=== PATIENT | male | born 1955 | race Caucasian/White ===

== ENCOUNTER → 2018-06-08 09:08 | Outpatient (CLI) | payer OTHER, SELFPAY | PROVIDERS: Family Provider Family Medicine; PCP Family Medicine; Referring Provider Nurse Practitioner Adult Health; Visit Provider Nurse Practitioner Adult Health | DX: R97.20 Elevated prostate specific antigen [PSA] (principal) | CPT/HCPCS: 36415; 84153 ==

== ENCOUNTER → 2018-06-18 08:00 | Outpatient (CLI) | payer OTHER, SELFPAY ==
--- NOTE | 2018-06-18 | IMM_PTH ---
PATIENT: RADHA DE LA ROSA LOC: [facility] U#:[id number] AGE/SX: 70/M ROOM: RE06/18/[address]: Dr. Krzysztof Fontanez MD : 1955 BED: DIS: SPEC #: [id number] RECD: 06/22/18 10:29 STATUS: JOEY REToya #: [id number] BOAZ: 06/18/18 00:[address]: Krzysztof Fontanez DEPT: IMMUNOHISTOCHEMISTRY RECD BY: Amy Jordan ENTERED: 06/22/18 10:30 SP TYPE: IMMUNO OTHR DR: Dr. Ermias Castillo MD Tissues: A - PROSTATE RIGHT B - PROSTATE RIGHT C - PROSTATE RIGHT Procedures: 34BE12 (add) P40 (add) 34BE12 (initial) PHYSICIAN & INSTITUTION [place] [id number] SPECIMEN INFORMATION: Tissue Source: A - Right prostate, apex, B - Right prostate, mid, C - Right prostate, base Clinical Info: Elevated PSA Specimen Number: [id number] A-C CPT code: 54352, 08401 x5 METHODOLOGY: Deparaffinized sections of prefer/formalin-fixed tissue or PAP/DQ stained slides are incubated with monoclonal/polyclonal antibodies/oligonucleotide probes. Localization is made via biotin free immunoperoxidase method. Appropriate controls are performed and reacted as expected. Results on target cell population are indicated in the following table: RESULTS: ANTIBODY / CLONE RESULT Block A 34BE12 (34BE12) negative P40 (BC28) negative Block B 34BE12 (34BE12) negative P40 (BC28) negative Block C 34BE12 (34BE12) negative P40 (BC28) negative These tests were developed and their performance characteristics determined by [facility]. They may not have been cleared or approved by the U.S. Food and Drug Administration. The FDA has determined that such clearance or approval is not necessary. INTERPRETATION: A. Right prostate, apex, core biopsy: Focal atypical small acinar proliferation. B. Right prostate, mid, core biopsy: Adenocarcinoma. C. Right prostate, base, core biopsy: Adenocarcinoma. SJ:radha 06/23/18 Case has been reviewed in consultation with Dr. Bauer who concurs with the above diagnosis. IDC:[email or web address]
--- NOTE | 2018-06-18 08:00 | PROSBIL_PTH ---
PATIENT: RADHA DE LA ROSA LOC: [facility] U#:[id number] AGE/SX: 70/M ROOM: RE06/18/[address]: Dr. Krzysztof Fontanez MD : 1955 BED: DIS: SPEC #: [id number] RECD: 06/18/18 16:51 STATUS: JOEY KAITLIN #: [id number] BOAZ: 06/18/18 08:[address]: Krzysztof Fontanez DEPT: SURGICAL PATHOLOGY RECD BY: Brooks Curtis ENTERED: 06/19/18 13:02 SP TYPE: PROST BX SUSIE DR: Dr. Ermias Castillo MD Tissues: A - PROSTATE RIGHT B - PROSTATE RIGHT C - PROSTATE RIGHT D - PROSTATE LEFT E - PROSTATE LEFT F - PROSTATE LEFT Procedures: PROSTATE BX HEADER OPERATION: Prostate biopsy PRE-OP DIAGNOSIS: Elevated PSA TISSUE SUBMITTED: A - Right apex, B - Right mid, C - Right base, D - Left apex, E - Left mid, F - Left base MICROSCOPIC DIAGNOSIS A. Right prostate, apex, core biopsy: Focal atypical small acinar proliferation (ALEXI). See comment. B. Right prostate, mid, core biopsy: Prostatic adenocarcinoma: Bouton grade: 3+4=7 Number of cores involved: 2 out of 2 Proportion of tissue involved: ~10% Perineural invasion: Not identified. Greatest tumor length: 0.1 cm Chronic inflammation. Focal high-grade prostatic intraepithelial neoplasia (HGPIN). See comment. C. Right prostate, base, core biopsy: Prostatic adenocarcinoma: Bouton grade: 4+4=8 Number of cores involved: 1 out of 2 Proportion of tissue involved: ~5% Perineural invasion: Not identified. Greatest tumor length: 0.1 cm See comment. D. Left prostate, apex, core biopsy: Focal high-grade prostatic intraepithelial neoplasia (HGPIN). E. Left prostate, mid, core biopsy: Prostatic tissue, negative for malignancy. F. Left prostate, base, core biopsy: Prostatic tissue, negative for malignancy. Focal chronic granulomatous inflammation. SJ:radha 06/22/18 COMMENT A-C. Immunohistochemistry ([id number]) supports the above diagnosis. Case has been reviewed in consultation with Dr. Bauer who concurs with the above diagnosis. IDC:AM MICROSCOPIC DESCRIPTION Slides are reviewed. GROSS DESCRIPTION A - Received is one container designated prostate, right apex. The specimen consists of four elongated fragments of light boo-white soft tissue each measuring 0.5 cm in length and 0.1 cm in diameter. The specimen is totally submitted in one cassette. B - Received is one container designated prostate, right mid. The specimen consists of two elongated fragments of light boo-white soft tissue measuring 0.8 and 0.9 cm in length and 0.1 cm in diameter. The specimen is totally submitted in one cassette. C - Received is one container designated prostate, right base. The specimen consists of two elongated fragments of light boo-white soft tissue measuring 1.3 and 1.5 cm in length and 0.1 cm in diameter. The specimen is totally submitted in one cassette. D - Received is one container designated prostate, left apex. The specimen consists of two elongated fragments of light boo-white soft tissue measuring 1 and 1.2 cm in length and 0.1 cm in diameter. The specimen is totally submitted in one cassette. E - Received is one container designated prostate, left mid. The specimen consists of four elongated fragments of light boo-white soft tissue measuring 0.3 to 1 cm in length and 0.1 cm in diameter. The specimen is totally submitted in one cassette. F - Received is one container designated prostate, left base. The specimen consists of two elongated fragments of light boo-white soft tissue measuring 0.3 and 0.5 cm in length and 0.1 cm in diameter. The specimen is totally submitted in one cassette. / SJ:rg 06/19/18 TC:0 [facility]: [id number] x6
== END ==
PROVIDERS: Family Provider Family Medicine; PCP Family Medicine; Referring Provider Urology; Visit Provider Urology
DX: C61 Malignant neoplasm of prostate (principal); N42.32 Atypical small acinar proliferation of prostate
CPT/HCPCS: 88305; 88341; 88342; G0416

== ENCOUNTER → 2018-06-26 07:14 | Outpatient (CLI) | payer OTHER, SELFPAY ==
--- NOTE | 2018-06-26 07:17 | NM_ITS ---
CLINICAL: 63-year-old female with reported history of carcinoma of the prostate. WHOLE BODY 99m Tc MDP RADIONUCLIDE BONE SCINTIGRAPHY COMPARISON: None available FINDINGS: Following the intravenous administration of 25.0 mCi of 99m Tc MDP, whole body bone images reveal: 1. Increased radiopharmaceutical concentration is identified in the mid cervical spine posteriorly on the right, fifth lumbar vertebra posteriorly on the left and right, the left hip, sternoclavicular, acromioclavicular and glenohumeral orbits of both shoulders, knees bilaterally, right-left ankles, the visualized wrist articulations bilaterally. 2. The remaining skeletal structures are scintigraphically unremarkable with normal-appearing renal images and urinary bladder activity identified. NM/Bone Scan Whole Body IMPRESSION: 1. The increase in radiopharmaceutical concentration identified in the cervical and lumbar spine, bilateral shoulder, wrist, hip and knee articulations, right-left ankles is commensurate with degenerative arthritis. 2. There is no definitive typical scintigraphic evidence of diffuse axial skeletal metastatic disease on the current examination. Electronically Signed: Brooks Seay DO at 8:20 EST Tel , Service support ,
== END ==
PROVIDERS: Family Provider Family Medicine; PCP Family Medicine; Referring Provider Urology; Visit Provider Urology
DX: C61 Malignant neoplasm of prostate (principal)
CPT/HCPCS: 78306

== ENCOUNTER → 2018-06-29 13:51 | Outpatient (CLI) | payer OTHER, SELFPAY ==
--- NOTE | 2018-06-29 13:57 | CT_ITS ---
STUDY: CT ABDOMEN AND PELVIS WITH CONTRAST REASON FOR EXAM: Male, 63 years old. Diagnosed prostate cancer. RADIATION DOSAGE (If Supplied By Facility): CTDIvol = ( 15.78 ) mGy, DLP = ( 1143.96 ) mGycm TECHNIQUE: Transaxial images were obtained from the dome of the diaphragm to the symphysis pubis without oral contrast. 100ML ml of Isovue 300 contrast was administered. Sagittal and coronal images were reconstructed. Individualized dose optimization techniques were used for this CT. COMPARISON: None. FINDINGS: There is a 4 mm calcified granuloma in the left lower lobe. The lungs are otherwise clear. The visualized portions of the heart are within normal limits. Normal liver. Multiple layering gallstones within the gallbladder. There is no wall thickening or inflammatory change. There is no biliary ductal dilatation. There are multiple benign calcified granulomata of the spleen. Normal pancreas. Normal bilateral adrenal glands. Normal right kidney. Normal left kidney. Normal visualized bilateral ureters. Stomach is poorly distended but grossly normal. Normal small intestine. Normal colon. The appendix is visualized and appears normal. Normal abdominal aorta. Normal inferior vena cava. Normal retroperitoneum. Normal urinary bladder. The prostate is enlarged and invaginates into the bladder floor. There is no evidence of extension outside the capsule. There is no pelvic lymphadenopathy. No free air or free fluid is seen within the abdominal cavity. Normal abdominal wall. There are degenerative changes of the lumbar spine and hips. There is no visualized fracture. There is no evidence of metastasis. CT/Abdomen/Pelvis W IV Cont ONLY IMPRESSION: 1. Markedly enlarged prostate which invaginates in the bladder floor. There is no evidence of local extension or metastatic disease 2. Old granulomatous disease. 3. Multiple gallstones without acute cholecystitis. 4. Degenerative changes of the hips and lumbar spine. Electronically Signed: Goldy Barclay DO at 16:08 EST Tel [phone], Service support ,
[2018-06-29 14:15] LABS: CREATININE FINGERSTICK 0.9 mg/dL (0.70-1.30)
--- OUTSIDE RECORDS SUMMARY | 2018-08-11 11:12 | XMS RPT_ITS ---
:1955 Author Organization OHIP Support Name Relationship Address Phone [facility] Unavailable [address] + [place] [address] BRADFORD DE LA ROSA Unavailable [address] + [place] [address] ESTRELLA LISE Unavailable [address] + [place] [address] [facility] Unavailable [address] + [place] [address] BRADFORD DEL A ROSA Unavailable [address] + [facility] [address] DE LA ROSA, LISE Unavailable Unavailable + [facility] Unavailable [address] + [place] [address] BRADFORD DE LA ROSA Unavailable [address] + [facility] [place] [address] DE LA ROSA, LISE Unavailable Unavailable + [facility] Unavailable [address] + [place] [address] BRADFORD DE LA ROSA Unavailable [address] + [place] [address] DE LA ROSA, LISE Unavailable Unavailable + NOT GIVEN Unavailable Unavailable Unavailable BRADFORD DE LA ROSA Unavailable [address] [place] [address] NOT GIVEN Unavailable Unavailable Unavailable BRADFORD DE LA ROSA Unavailable [address] [place] [address] Care Team Providers Name Role Phone ERMIAS CASTILLO Admitting Unavailable ERMIAS CASTILLO Attending Unavailable ERMIAS CASTILLO Primary Care Unavailable ERMIAS CASTILLO Consulting Unavailable PROVIDER, UNKNOWN Consulting Unavailable PROVIDER, UNKNOWN Consulting Unavailable PROVIDER, UNKNOWN Consulting Unavailable ERMIAS CASTILLO Admitting Unavailable ERMIAS CASTILLO Attending Unavailable ERMIAS CASTILLO Primary Care Unavailable ERMIAS CASTILLO Consulting Unavailable PROVIDER, UNKNOWN Consulting Unavailable PROVIDER, UNKNOWN Consulting Unavailable PROVIDER, UNKNOWN Consulting Unavailable Estee, Krzysztof Manjarrez Attending Unavailable Ermias Castillo Primary Care Unavailable Estee, Krzysztof Manjarrez Referring Unavailable Estee, Krzysztof Manjarrez Attending Unavailable Ermias Castillo Primary Care Unavailable Estee, Krzysztof Manjarrez Referring Unavailable Estee, Krzysztof Manjarrez Attending Unavailable Estee, Krzysztof Manjarrez Referring Unavailable Ermias Castillo Primary Care Unavailable Edmond, Hope Kilgore Attending Unavailable Edmond, Hope M Referring Unavailable Ermias Castillo Primary Care Unavailable PROBLEMS PROBLEMS DATE TYPE CONDITION / CODE ATTENDING STATUS SOURCE 05/25/2018 Principle Hyperlipidemia, ERMIAS CASTILLO Active Desean Pomerene Diagnosis unspecified / [facility] E785(ICD-10) Hospital Repository 05/25/2018 Secondary Elevated prostate ERMIAS CASTILLO Active Desean Pomeregerardo Diagnosis specific antigen [facility] R9720(ICD-10) Repository 09/17/2017 Principle Encounter for ERMIAS CASTILLO Active Desean Pomkirsten Diagnosis screening for [facility] neoplasm of Repository prostate / Z125(ICD-10) PROCEDURES PROCEDURES No Procedure Records FoundRESULTS RESULTS CREATININE FINGERSTICK Collected: 06/29/2018 Status: F Source: [place] 2:10 PM [facility] [place] TYPE CODE TESTS RESULT OUT OF RANGE REFERENCE UNITS LAB L9100.0210 0.70-1.30 mg/dL Normal CREATININE WB 0.9 Performed By: #### L9100.0200 #### [facility] Point of Care [address] [facility] [place] [address] ABDOMEN/PELVIS W IV CONT Observed: 06/29/2018 Status: F Source: EV[place] ONLY 1:57 PM [facility] [place] [facility] Imaging Services [address] [place] [address] Abdomen/Pelvis W IV Cont ONLY MR#: [id number] Acct: [id number] Name: RADHA DE LA ROSA Rep #: [id number] : 1955 M 63 From: Goldy Barclay DO PCP: Ermias Castillo md Status: REG CLI Study: Abdomen/Pelvis W IV Cont ONLY Date of Exam: 06/29/18 Exam# [id number] Ordering Dr: Krzysztof Fontanez MD STUDY: CT ABDOMEN AND PELVIS WITH CONTRAST REASON FOR EXAM: Male, 63 years old. Diagnosed prostate cancer. RADIATION DOSAGE (If Supplied By Facility): CTDIvol = ( 15.78 ) mGy, DLP = ( 1143.96 ) mGycm TECHNIQUE: Transaxial images were obtained from the dome of the diaphragm to the symphysis pubis without oral contrast. 100ML ml of Isovue 300 contrast was administered. Sagittal and coronal images were reconstructed. Individualized dose optimization techniques were used for this CT. COMPARISON: None. FINDINGS: There is a 4 mm calcified granuloma in the left lower lobe. The lungs are otherwise clear. The visualized portions of the heart are within normal limits. Normal liver. Multiple layering gallstones within the gallbladder. There is no wall thickening or inflammatory change. There is no biliary ductal dilatation. There are multiple benign calcified granulomata of the spleen. Normal pancreas. Normal bilateral adrenal glands. Normal right kidney. Normal left kidney. Normal visualized bilateral ureters. Stomach is poorly distended but grossly normal. Normal small intestine. Normal colon. The appendix is visualized and appears normal. Normal abdominal aorta. Normal inferior vena cava. Normal retroperitoneum. Normal urinary bladder. The prostate is enlarged and invaginates into the bladder floor. There is no evidence of extension outside the capsule. There is no pelvic lymphadenopathy. No free air or free fluid is seen within the abdominal cavity. Normal abdominal wall. There are degenerative changes of the lumbar spine and hips. There is no visualized fracture. There is no evidence of metastasis. CT/Abdomen/Pelvis W IV Cont ONLY IMPRESSION: 1. Markedly enlarged prostate which invaginates in the bladder floor. There is no evidence of local extension or metastatic disease 2. Old granulomatous disease. 3. Multiple gallstones without acute cholecystitis. 4. Degenerative changes of the hips and lumbar spine. Electronically Signed: Goldy Barclay DO at 16:08 EST Tel [phone], Service support , CC: md Ermias Castillo; Krzysztof Fontanez MD Pesticide Control Inspector: Signed BONE SCAN WHOLE Observed: 06/26/2018 Status: F Source: [place] BODY 7:17 AM [facility] [place] [facility] Imaging Services [address] [place] [address] Bone Scan Whole Body MR#: [id number] Acct: [id number] Name: RADHA DE LA ROSA Rep #: [id number] : 1955 M 63 From: Brooks Seay DO PCP: Ermias Castillo md Status: REG CLI Study: Bone Scan Whole Body Date of Exam: 06/26/18 Exam# [id number] Ordering Dr: Krzysztof Fontanez MD CLINICAL: 63-year-old female with reported history of carcinoma of the prostate. WHOLE BODY 99m Tc MDP RADIONUCLIDE BONE SCINTIGRAPHY COMPARISON: None available FINDINGS: Following the intravenous administration of 25.0 mCi of 99m Tc MDP, whole body bone images reveal: 1. Increased radiopharmaceutical concentration is identified in the mid cervical spine posteriorly on the right, fifth lumbar vertebra posteriorly on the left and right, the left hip, sternoclavicular, acromioclavicular and glenohumeral orbits of both shoulders, knees bilaterally, right-left ankles, the visualized wrist articulations bilaterally. 2. The remaining skeletal structures are scintigraphically unremarkable with normal-appearing renal images and urinary bladder activity identified. NM/Bone Scan Whole Body IMPRESSION: 1. The increase in radiopharmaceutical concentration identified in the cervical and lumbar spine, bilateral shoulder, wrist, hip and knee articulations, right-left ankles is commensurate with degenerative arthritis. 2. There is no definitive typical scintigraphic evidence of diffuse axial skeletal metastatic disease on the current examination. Electronically Signed: Brooks Seay DO at 8:20 EST Tel , Service support , CC: md Ermias Castillo; Krzysztof Fontanez MD Pesticide Control Inspector: Signed PROSTATE BIOPSY Observed: 06/18/2018 Status: F Source: [place] BILATERAL 8:00 AM [facility] [place] Patient: RADHA DE LA ROSA : 1955 (63/M) Acct Num: [id number] Phys: Estee DYER,Blayne Unit Num: [id number] Loc: LABSPEC Specimen: [id number] Received: 06/18/181650 Spec Type: PROST BX TISSUES 1 TISSUES: A. PROSTATE RIGHT B. PROSTATE RIGHT C. PROSTATE RIGHT D. PROSTATE LEFT E. PROSTATE LEFT F. PROSTATE LEFT COMMENT A-C. Immunohistochemistry ([id number]) supports the above diagnosis. Case has been reviewed in consultation with Dr. Bauer who concurs with the above diagnosis. IDC:AM GROSS DESCRIPTION A - Received is one container designated prostate, right apex. The specimen consists of four elongated fragments of light boo-white soft tissue each measuring 0.5 cm in length and 0.1 cm in diameter. The specimen is totally submitted in one cassette. B - Received is one container designated prostate, right mid. The specimen consists of two elongated fragments of light boo-white soft tissue measuring 0.8 and 0.9 cm in length and 0.1 cm in diameter. The specimen is totally submitted in one cassette. C - Received is one container designated prostate, right base. The specimen consists of two elongated fragments of light boo-white soft tissue measuring 1.3 and 1.5 cm in length and 0.1 cm in diameter. The specimen is totally submitted in one cassette. D - Received is one container designated prostate, left apex. The specimen consists of two elongated fragments of light boo-white soft tissue measuring 1 and 1.2 cm in length and 0.1 cm in diameter. The specimen is totally submitted in one cassette. E - Received is one container designated prostate, left mid. The specimen consists of four elongated fragments of light boo-white soft tissue measuring 0.3 to 1 cm in length and 0.1 cm in diameter. The specimen is totally submitted in one cassette. F - Received is one container designated prostate, left base. The specimen consists of two elongated fragments of light boo-white soft tissue measuring 0.3 and 0.5 cm in length and 0.1 cm in diameter. The specimen is totally submitted in one cassette. / BRUNO:radha 06/19/18 TC:0 CPT: 92189 x6 HEADER OPERATION: Prostate biopsy PRE-OP DIAGNOSIS: Elevated PSA TISSUE SUBMITTED: A - Right apex, B - Right mid, C - Right base, D - Left apex, E - Left mid, F - Left base MICROSCOPIC DESCRIPTION Slides are reviewed. MICROSCOPIC DIAGNOSIS A. Right prostate, apex, core biopsy: Focal atypical small acinar proliferation (ALEXI). See comment. B. Right prostate, mid, core biopsy: Prostatic adenocarcinoma: [place] grade: 3+4=7 Number of cores involved: 2 out of 2 Proportion of tissue involved: ~10% Perineural invasion: Not identified. Greatest tumor length: 0.1 cm Chronic inflammation. Focal high-grade prostatic intraepithelial neoplasia (HGPIN). See comment. C. Right prostate, base, core biopsy: Prostatic adenocarcinoma: [place] grade: 4+4=8 Number of cores involved: 1 out of 2 Proportion of tissue involved: ~5% Perineural invasion: Not identified. Greatest tumor length: 0.1 cm See comment. D. Left prostate, apex, core biopsy: Focal high-grade prostatic intraepithelial neoplasia (HGPIN). E. Left prostate, mid, core biopsy: Prostatic tissue, negative for malignancy. F. Left prostate, base, core biopsy: Prostatic tissue, negative for malignancy. Focal chronic granulomatous inflammation. SJ:radha 06/22/18 PSA RESULTS 1 Date Time Test Result Flag (u) Normal Range 06/08/18 0920 PSA, DIAGNOSTIC 14.10 H 0.0-4.0 ng/mL 1 This test was performed using the TPSA assay method for the [employer] chemistry system. Values obtained with different assay methods cannot be used interchangably. When changing PSA assays in the course of monitoring a patient, additional sequential testing should be carried out to confirm baseline values. Signed Chace Briseno 06/23/18 <signature on file> Performed By: #### PPROSBIL #### [facility] [address] [place], [address] IMMUNOHISTOCHEMISTRY Observed: 06/18/2018 Status: F Source: [place] 12:00 AM [facility] [place] Patient: RADHA DE LA ROSA : 1955 (63/M) Acct Num: [id number] Phys: Estee DYER,Blayne Unit Num: [id number] Loc: LABSPEC Specimen: [id number] Received: 06/22/18 - 1029 Spec Type: IMMUNO TISSUES 1 TISSUES: A. PROSTATE RIGHT B. PROSTATE RIGHT C. PROSTATE RIGHT SPECIMEN INFORMATION: Tissue Source: A - Right prostate, apex, B - Right prostate, mid, C - Right prostate, base Clinical Info: Elevated PSA Specimen Number: [id number] A-C CPT code: 26482, 19663 x5 METHODOLOGY: Deparaffinized sections of prefer/formalin-fixed tissue or PAP/DQ stained slides are incubated with monoclonal/polyclonal antibodies/oligonucleotide probes. Localization is made via biotin free immunoperoxidase method. Appropriate controls are performed and reacted as expected. Results on target cell population are indicated in the following table: RESULTS: ANTIBODY / CLONE RESULT Block A 34BE12 (34BE12) negative P40 (BC28) negative Block B 34BE12 (34BE12) negative P40 (BC28) negative Block C 34BE12 (34BE12) negative P40 (BC28) negative These tests were developed and their performance characteristics determined by [facility]. They may not have been cleared or approved by the U.S. Food and Drug Administration. The FDA has determined that such clearance or approval is not necessary. INTERPRETATION: A. Right prostate, apex, core biopsy: Focal atypical small acinar proliferation. B. Right prostate, mid, core biopsy: Adenocarcinoma. C. Right prostate, base, core biopsy: Adenocarcinoma. SJ:radha 06/23/18 Case has been reviewed in consultation with Dr. Bauer who concurs with the above diagnosis. IDC:AM [facility] [address] [address] Signed Chace Briseno 06/23/18 <signature on file> Performed By: #### PIMM #### [facility] [address] [place] [address], [address] PSA,TOTAL- DIAGNOSTIC Collected: 06/08/2018 Status: F Source: [place] 9:20 [facility] REPOSITORY TYPE CODE TESTS RESULT OUT OF REFERENCE UNITS RANGE LAB L501.9940 0.0-4.0 ng/mL PSA, High DIAGNOSTIC 14.10 Result Comment: This test was performed using the TPSA assay method for the [employer] chemistry system. Values obtained with different assay methods cannot be used interchangably. When changing PSA assays in the course of monitoring a patient, additional sequential testing should be carried out to confirm baseline values. Performed By: #### L501.9940 #### [facility] [address] [place], [place], [address] LIPID PROFILE Collected: 05/25/2018 Status: F Source: [facility] 8:29 [facility] REPOSITORY TYPE CODE TESTS RESULT OUT OF REFERENCE UNITS RANGE LAB LIPID PROFILE(LOIN C) LIPID PROFILE Result Comment: LIPID PROFILE LAB TRIGLYCERIDE(LOINC) 0 - 150 mg/dl TRIGLYCERIDE 127 LAB CHOLESTEROL(LOINC) 0 - 200 mg/dl CHOLESTEROL 146 LAB HDL(LOINC) 40 - 60 mg/dl HDL Low 34 LAB CHOL/HDL(LOINC) 0.0 - 5.0 CHOL/HDL 4.3 LAB LDL(LOINC) 0 - 129 mg/dl LDL 87 Performed By: #### [id number] #### [facility],[address] [place] [address] CMP WITH EGFR Collected: 05/25/2018 Status: F Source: [facility] 8:29 [facility] REPOSITORY TYPE CODE TESTS RESULT OUT OF RANGE REFERENCE UNITS LAB CMP with eGFR(LOINC) CMP with eGFR Result Comment: COMPREHENSIVE METABOLIC PANEL LAB SODIUM(LOINC) 136 - 145 mmol/l SODIUM 141 LAB POTASSIUM(LOINC) 3.5 - 5.1 mmol/L POTASSIUM 4.5 LAB CHLORIDE(LOINC) 98 - 107 mmol/L CHLORIDE 105 LAB CO2(LOINC) 21.0 - mmol/L 31.0 CO2 28.2 LAB GLUCOSE(LOINC) 74 - 106 mg/dl GLUCOSE High 110 LAB BUN(LOINC) 6 - 20 mg/dl BUN 15 LAB CREATININE(LOINC) 0.7 - 1.3 mg/dl CREATININE 1.2 LAB AST/SGOT(LOINC) 13 - 39 U/L AST/SGOT 37 LAB ALK PHOS(LOINC) 38 - 126 U/L ALK PHOS 65 LAB CALCIUM(LOINC) 8.6 - mg/dl 10.2 CALCIUM 9.6 LAB TOTAL 6.4 - 8.3 g/dl PROTEIN(LOINC) TOTAL PROTEIN 6.8 LAB ALBUMIN(LOINC) 3.4 - 4.8 g/dL ALBUMIN 4.3 LAB GLOBULIN(LOINC) 1.5 - 3.8 G/DL GLOBULIN 2.5 LAB A/G RATIO(LOINC) 0.9 - 1.6 A/G High RATIO 1.7 LAB TOTAL BILI(LOINC) 0.0 - 1.5 mg/dl TOTAL BILI 0.9 LAB B/C RATIO(LOINC) 0 - 30 ratio B/C RATIO 13 LAB ALT/SGPT(LOINC) 10 - 40 U/L ALT/SGPT High 58 LAB ANION GAP(LOINC) 10 - 20 mmol/L ANION GAP 12 LAB AGE(LOINC) years AGE 63 LAB eGFR(LOINC) 60 - 999 ML/MINUTE eGFR >60 LAB eGFR(AA)(LOINC) 60 - 999 ML/MINUTE eGFR(AA) >60 Result Comment: ACCORDING TO THE NATIONAL KIDNEY DISEASE EDUCATION PROGRAM(NKDE), A NORMAL eGFR IS A VALUE GREATER THAN OR EQUAL TO 60 ML/MIN/1.73 SQ METERS. CHRONIC KIDNEY DISEASE: <60mL/MIN/1.73 SQ METERS KIDNEY FAILURE: <15mL/MIN/1.73 SQ METERS THIS TEST SHOULD ONLY BE USED FOR PATIENTS 18 YEARS OF AGE AND OLDER. Performed By: #### [id number] #### [place] [address] PSA TOTAL (CANCER/ELEVATED) Collected: Status: F Source: [place] 05/25/2018 8:29 AM [facility] REPOSITORY TYPE CODE TESTS RESULT OUT OF RANGE REFERENCE UNITS LAB PSA(LOINC) 0.00 - 4.00 ng/ml High PSA 14.68 Performed By: #### [id number] #### [place] [address] PSA TOTAL (CANCER/ELEVATED) Collected: Status: F Source: [place] 09/17/2017 8:51 AM [facility] REPOSITORY TYPE CODE TESTS RESULT OUT OF RANGE REFERENCE UNITS LAB PSA(LOINC) 0.00 - 4.00 ng/ml High PSA 5.70 Performed By: #### [id number] #### [place] [address] ALLERGIES ALLERGIES No Allergies Records FoundENCOUNTERS ENCOUNTERS ADMIT/DISCHARGE ACCOUNT ADMITTING ENCOUNTER LOCATION SOURCE NUMBER CLASS 06/29/2018 [id number] Ambulatory [place] Evin 6 [facility] ing:CT Repository 06/26/2018 [id number] Ambulatory [place] Evin 1 [facility] ing:NM Repository 06/18/2018 [id number] Ambulatory [place] 5 [facility] ing:LABSPEC Repository 06/08/2018 [id number] Ambulatory [place] Ev[place] 2 [facility] ing:LAB Repository 05/25/2018/ [id number] [address] Repository 09/17/2017/ [id number] [address] Repository PAYERS PAYERS ENCOUNTER GUARANTOR PAYER SUBSCRIBER SOURCE 06/29/2018 RADHA Thao Primary BRADFORD Cleary [id number] CR Insurance:[facility]: [address] cy Number: [id number] [facility] [address]Kzf: [id number] Repository () Date:0666-27-86[address] [place] [address]LW: 06/29/2018 Secondary NOT GIVENUNK [place] Insurance:SELF PAY [facility] Number: Effective Repository Date:2018-06-23 06/26/2018 RADHA Thao Primary BRADFORD Cleary [id number] CR Insurance:[facility]: [address] cy Number: [id number] Hospital [address]Wii: [id number] Repository [phone] () Date:[id number] [address]EW: 06/26/2018 Secondary NOT GIVENUNK [place] Insurance:SELF PAY [facility] Number: Effective Repository Date:2018-06-23 06/18/2018 RADHA Thao Primary BRADFORD Cleary [id number] CR Insurance:[facility]: [address] cy Number: [id number] [facility] [address]Pcy: ([id number] Repository [id number] (HP) Date:[id number] [address] [address]YB: 06/18/2018 Secondary NOT GIVENUNK [place] Insurance:SELF PAY [facility] Number: Effective Repository Date:2018-06-18 06/08/2018 RADHA A Primary BRADFORD Cleary [id number] CR Insurance:[employer] SMITHDOB: [address] cy Number: [id number] [address]Qjh: [phone] [id number] Repository [id number] () Date:7516-12-[address] [address]AK: 06/08/2018 Secondary NOT GIVENUNK [place] Insurance:SELF PAY [facility] Number: Effective Repository Date:2018-06-08 05/25/2018 RADHA A Primary BRADFORD L Desean Stuart SMITHDOB: Insurance:[employer] SMITHDOB: [facility] cy Number: [id number] [address], [id number] [address] [place] [address] Repository [place] [address]Vca: Date:Plan Name: [place] [address] () 09/17/2017 RADHA A Primary BRADFORD Stuart SMITHDOB: Insurance:[employer] SMITHDOB: [facility] [id number] [address], Number: [address] [facility] [place]ository [place] [address]Prd: [id number] [address] [place] [address] Date:Plan Name:PI [id number] () 09/17/2017 Secondary BRADFORD SMITHDOB: Desean Stuart [facility] [id number] [place] [address] Repository Number: [id number] Date:Plan Name:O2
== END ==
PROVIDERS: Family Provider Family Medicine; PCP Family Medicine; Referring Provider Urology; Visit Provider Urology
DX: C61 Malignant neoplasm of prostate (principal)
CPT/HCPCS: 74177; Q9967

== ENCOUNTER 2018-08-05 07:17 | Inpatient (IN) | payer OTHER, SELFPAY ==
[2018-07-23 14:28] VITALS: BP 137/86; PULSE 89; RESP 16; TEMP 37.3; O2SAT 97; BMI 32.0
--- NOTE | 2018-07-23 14:42 | SDCEKG_ITS ---
Test Reason : Blood Pressure : / mmHG Vent. Rate : 084 BPM Atrial Rate : 084 BPM P-R Int : 150 ms QRS Dur : 090 ms QT Int : 354 ms P-R-T Axes : 048 001 049 degrees QTc Int : 418 ms Normal sinus rhythm Normal ECG Confirmed by ARNALDO SALGADO ([id number]), newspaper copy editor HARMAN CIFUENTES ([id number]) on 07/29/2018 2:46:53 PM Referred By: Krzysztof Fontanez Confirmed By:ARNALDO SALGADO
[2018-07-23 15:08] LABS: Hematocrit 44.1 % (40-54); Hemoglobin 14.9 g/dl (13.0-16.5); Mean Corp Hgb Conc 33.8 g/gl (32-36); Mean Corpuscular Hgb 31.8 pg (27.0-32.0); Mean Corpuscular Volume 94.2 fL (80-94); Mean Platelet Vol. 8.9 fl (6.2-12.0); Platelet Count 189 K/mm3 (150-450); RBC Distribution Width CV 13.3 % (11.6-14.6); RBC Distribution Width SD 45.7 fl (35.1-43.9); Red Blood Count 4.68 M/mm3 (4.6-6.2); Scan Indicated on CBC? Y/N NO; White Blood Count 7.5 K/mm3 (4.4-11.0)
[2018-07-23 15:34] LABS: Anion Gap 7 (5-15); BUN 17 mg/dL (7-18); BUN/Creat Ratio 15.2 RATIO (10-20); Calcium,Total 9.1 mg/dL (8.5-10.1); Chloride 106 mmol/L (98-107); Creatinine, Serum 1.12 mg/dL (0.70-1.30); EST Glomerular Filtration Rate 71 mL/min (>60); Est Glom Filt Rate - Afr Amer 85 mL/min (>60); Estimated Creatinine Clearance 70.61 ml/min; Glucose 97 mg/dL (74-106); Sodium Level 139 mmol/L (136-145)
[2018-08-05] VITALS (12 sets, daily range): BP systolic 109–151; BP diastolic 71–99; PULSE 79–101; RESP 16–20; TEMP 36–37.3; O2SAT 96–100; BMI 32.0
--- NOTE | 2018-08-05 | PROST_PTH ---
PATIENT: RADHA DE LA ROSA LOC: [facility] U#:[id number] AGE/SX: 63/M [place] [facility] [id number] RE08/05/[address]: Dr. Krzysztof Fontanez MD : 1955 BED: 1 DIS: 08/06/2018 SPEC #: [id number] RECD: 08/05/18 14:21 STATUS: JOEY REToya #: [id number] BOAZ: 08/05/18 00:[address]: Krzyszotf Fontanez DEPT: SURGICAL PATHOLOGY RECD BY: Patric Chinchilla ENTERED: 08/05/18 14:21 SP TYPE: PROSTATE OTHR DR: Dr. Ermias Castillo MD Tissues: A - Prostate, NOS B - Lymph node of pelvis, NOS C - Lymph node of pelvis, NOS D - Adipose tissue Procedures: Surgery Specimen Level IV Surgery Specimen Level HEADER OPERATION: Laparoscopic robotic radical prostatectomy with nerve monitor PRE-OP DIAGNOSIS: Malignant neoplasm of prostate TISSUE SUBMITTED: A - Prostate, B - Right pelvic lymph node, C - Left pelvic lymph node, D - Fat over prostate MICROSCOPIC DIAGNOSIS A. Prostate, radical prostatectomy: Prostatic adenocarcinoma, acinar type with focal mucinous differentiation. See cancer summary below. B. Right pelvic lymph node, biopsy: One lymph node, negative for metastatic carcinoma. C. Left pelvic lymph node, biopsy: Adipose tissue, no pathologic diagnosis. No lymph node tissue is identified. D. Fat over prostate, biopsy: Adipose tissue, negative for carcinoma. SJ:radha 08/07/18 PROSTATE CANCER (RADICAL) SUMMARY: Procedure - radical prostatectomy Prostate size - 6 cm transversely, 5.5 cm craniocaudally and 3.6 cm anterior-posteriorly Prostate weight - 88 gm Lymph node sampling - pelvic lymph node dissection Histologic type - adenocarcinoma, acinar with focal mucinous differentiation. Histologic grade ([place] Pattern): Primary pattern - 5 Secondary pattern - 4 Tertiary pattern - 3 Total Jocelin score - 9 Tumor Quantitation: Proportion (%) of prostate involved by tumor - 10% Extraprostatic extension - not identified Seminal vesicle invasion - not identified Margins - margins uninvolved by invasive carcinoma. Treatment effect on carcinoma - no known presurgical therapy. Lymph-Vascular invasion - not identified Perineural invasion - present, focal Regional lymph nodes: Number examined - 1 Number involved - 0 Distant metastasis - not applicable Additional pathologic findings - chronic inflammation and high-grade prostatic intraepithelial neoplasia (HGPIN). Ancillary studies - not performed PATHOLOGIC STAGE: pT2c pN0 Mx The above summary is in compliance with [employer] (CAP) Cancer Protocols Checklist and [place] Joint Committee on Cancer (AJCC), Staging Manual, 8th Ed. COMMENT The tumor is present predominantly in the right lobe and involves apical, mid and basal portion of prostate (slide # 6, 8, 11, 12, 15 and 17) and measures 2.5 x 0.6 cm (measured microscopically). A minute focus of invasive tumor is noted in the left prostate measuring <0.1 cm in greatest dimension, mid portion (slide # 13). Focal high-grade prostatic intraepithelial neoplasia is noted in both right and left lobes. Please make reference to previous specimen ([id number]) right prostate, mid and right prostate, base with diagnosis of prostatic adenocarcinoma and right prostate, apex with diagnosis of focal atypical small acinar proliferation and left prostate, apex with diagnosis of focal high-grade prostatic intraepithelial neoplasia. Case has been reviewed in consultation with Dr. Bauer who concurs with the above diagnosis. IDC:AM MICROSCOPIC DESCRIPTION Slides are reviewed. GROSS DESCRIPTION A - Received in fixative is one container labeled with the patient's name and designated prostate. The specimen consists of a prostate gland weighing 88 gm and containing prostate with attached seminal vesicles and vas deferens. The specimen measures 6 cm transversely, 5.5 cm craniocaudally and 3.6 cm anterior-posteriorly. On palpation, no mass lesions are identified. The specimen is differentially inked as follows: right half - blue, left half - green, anterior - red and entire posterior surface - black. The specimen is left for additional overnight fixation. / AM:rg 08/05/18 After fixation, the specimen is serially sectioned from apex to base of gland at approximately 3-4 mm sections. Serial sections do not reveal a distinct mass lesion. The cut surfaces are light boo and rubbery in consistency. Complex Human Resources Manager sections are submitted in 19 cassettes as follows: 1 - distal urethral margin (apex), 2 - bladder shave (proximal urethral margin), 3 - right and left seminal vesicles, 4 & 5 - most basal prostatic section, 6-9 - apex of gland, 10-15 - mid portion of gland, 16-19 - base of gland. / AM:radha 08/06/18 B - Received in fixative is one container labeled with the patient's name and designated right pelvic lymph node. The specimen consists of an irregular fragment of pink-yellow soft tissue measuring 3 x 2 x 0.7 cm. Sectioning reveals a single boo nodule measuring 1.5 cm in greatest dimension. The specimen is totally submitted in one cassette. / AM:radha 08/05/18 C - Received in fixative is one container labeled with the patient's name and designated left pelvic lymph node. The specimen consists of an irregular fragment of yellow fatty tissue measuring 2.6 x 1.6 x 0.5 cm. The specimen is totally submitted in one cassette. / AM:radha 08/05/18 D - Received in fixative is one container labeled with the patient's name and designated fat over prostate. The specimen consists of two irregular fragments of yellow fatty tissue measuring 4.2 x 2 x 0.6 cm. The specimen is submitted in its entirety in one cassette. / AM:radha 08/05/18 TC:0 CPT: 26515, 13978 x3
--- NOTE | 2018-08-05 07:25 | DCINST_ITS ---
Discharge Diet: Light diet - advance as tolerated Discharge Activity: May not drive while taking narcotic pain medications., May Shower Return to work on:: 09/16/18 May shower in (days): 1 May resume sexual activity in: 6 weeks Call your doctor if your incision/area has: Continuous Slow Oozing, Sudden Increased Bleeding, Increased Pain/ Swelling, Increased Redness, Foul Smelling Discharge, Swelling at the incision site Call your doctor if you observe: Fever of 101 or Higher, Inability to have a bowel movement, Uncontrolled pain Suture Line Care: Avoid Pulling/Pushing, Avoid Pinching/Bending Cleanse incision/area with: Soap & Water Catheter: Ortega to leg bag, Ortega to large bag Drain: [place] Instructions: Discharge Instructions for Radical Prostatectomy Allergies/Adverse Reactions: Allergies No Known Allergies Allergy (Verified 07/23/18 14:11) Medications to take at Discharge Acetaminophen [Tylenol Extra Strength] 500 - 1,000 mg PO Q6H PRN PRN 07/23/18 Atorvastatin Calcium [Lipitor] 10 mg PO QHS 07/23/18 Gluc Bauman/Chondro Bauman A/Vit C/Mn [Glucosamine Chondroitin Tab] 2 each PO DAILY 07/23/18 Lisinopril [Zestril] 10 mg PO DAILY 07/23/18 Multivitamin [Daily Multiple Vitamin] 1 each PO DAILY 07/23/18 Niacin 2 tab PO DAILY 07/23/18 Ciprofloxacin [Cipro] 500 mg PO BID #20 tab 08/05/18 Docusate Sodium [Colace] 100 mg PO BID #20 cap 08/05/18 Hydrocodone/Acetaminophen [[place] 5-325 Tablet] 1 ea PO Q4H PRN PRN 5 Days #14 tab 08/05/18 The following prescriptions were given: Hydrocodone/Acetaminophen [[place] 5-325 Tablet] 1 ea PO Q4H PRN PRN 5 Days #14 tab PRN Reason: Pain Ciprofloxacin [Cipro] 500 mg PO BID #20 tab Docusate Sodium [Colace] 100 mg PO BID #20 cap Primary Care Physician: Ermias Castillo [Primary Care Provider] - Test Results: Test results from this visit will be discussed in further detail at your follow- up appointment, if applicable. Please Follow Up With: Krzysztof Fontanez MD When: call for appointment next . Proposed Discharge Date: 08/06/18
[2018-08-05] MEDS: Cefazolin 2 GM in 0.9% Normal Saline 100 ML IV (07:33)
[2018-08-05] MEDS: Bupivacaine 0.5% PF 10 ML VIAL (11:00)
--- NOTE | 2018-08-05 11:26 | OP.PCM_ITS ---
Report of Operation Date of Procedure: 08/05/18 Pre-Operative Diagnosis: Prostate cancer Post-Operative Diagnosis: Same Surgery/Procedure Performed:: Laparoscopic robotic assisted radical prostatectomy with bilateral nerve sparing, EMG monitoring of the urethral sphincter and pelvic nerves, bilateral pelvic lymph node dissection, suture suspension of the urethra. Description of Surgical Findings:: 63-year-old male was taken back to the operating room as a history of prostate cancer diagnosed by biopsy he is under gone counseling of the options of management treatment for his prostate cancer this included observation radiation therapy and surgery, given his young age he wanted to proceed with surgery to remove the prostate were also going to do nerve sparing on both sides bilateral pelvic lymph node dissection. 63-year-old male taken back to the operating room after smooth induction of general anesthesia he was placed supine on the table, he underwent a general and endotracheal intubation by the anesthesiology team. He was placed supine and then in dorsal lithotomy position with the legs in stirrups properly padded use a beanbag inflated around the patient he was tested in Trendelenburg position, we then shaved the abdomen we prepped and draped the penis testicles upper thighs and abdomen in the usual sterile fashion and made an incision across the supraumbilical umbilically, introduced a Veress needle into the peritoneal cavity and inflated the peritoneal cavity with CO2 gas I then placed my camera trocar, 1012 camera trocar. I then placed my right arm robotic trocar, left arm robotic trocar, and the second patient care nursing assistant robotic trocar, I then placed my patient care nursing assistant air suction port which was a 10/12 port. I then placed my 5 mm suction port. Once all the ports were placed we docked the robot and then I proceeded with the dissection I used scissors of my right hand bipolar and pro- grasp my left hand side. First dissected by identifying the right vas deferens traced down to the pelvis were inserted into the prostate dissected out the right vas deferens and the right seminal vesicle and then transected across the left side and dissected out the left vas deferens and left seminal vesicle this was all done posterior to the prostate and posterior to the bladder I then created the space between the rectum and the prostate once this was created and the vas deferens and seminal vesicles were freed up and dissected then I went up to the bladder I dropped the bladder created the space of Retzius put the bladder on traction with the fourth arm and then cleared out all the space to open up the space of Retzius above the bladder and the prostate we then went to the right side first and the lymph node dissection in the right pelvic lymph nodes identified the bundle that was in the mat cleaning machine operator space off the vein but a clip above this identify the obturator nerve and then put a clip on below the bundle and into another clip and then the specimen was handed off appeared to be negative on gross examination. Went to the left side and similar lymph node dissection on the pelvic sidewall identified the left and right iliac and artery and vein and then on the left side identified the left iliac vein in front of the vein I dissected the fatty and lymphatic tissue off the pelvic sidewall down to the obturator nerve and then came to the lymphatics with clips and then identified the mat cleaning machine operator nerve to make sure the nerve was not injured and then put a clip superiorly and then the tissue was handed off as a specimen again this grossly looked negative. We then went up to the prostate I incised the endopelvic fascia in the past and the right and left side teased off the levator muscles of the prostate all the way to the apex I then dissected to the apical tissue and carefully dissected down to the dorsal vein complex and then dissected through the puboprostatic ligaments on the right and left side of the prostate and then finally the dorsal vein complex was identified. The dorsal vein complex was then suture ligated with 0 Vicryl CT1 needle using several sutures around the dorsal vein complex to control this vein. I then came back we then passed the electrodes into the abdomen passing through some fat to keep him on the sidewall and then placed him in the levator muscles in the right left side I then took some time to verify where the pelvic nerves running in the floor of the pelvic floor this was right next to the prostate on the right side and also very close to the prostate in the left side as we identified easily we then traced him from the base all the way to the apex and ran very close to the prostate laterally in both the left and right side we then dissected through the bladder and the prostate opening up the bladder neck had a very large connection between the bladder and the prostate and a very large opening into the bladder neck which is can be reconstructed. Identified the right and left ureteral orifices. I then dissected posteriorly behind the bladder and the prostate to get to the seminal vesicles and seminal vesicles were then pulled up we then used the fourth arm to place traction on the prostate laterally and then identified the nerve bundles again running underneath the prostate came to the pedicles of the prostate with clips and gently swept the nerve bundles on the right side off the prostate in the beginning we had good action potential on the EMG monitoring as we went along with the dissection toward the apex we got a little bit less return of the action potential but still was present but not as strong in the end of the dissection with the same sort of a week or response in the right side not as strong as the initial dissection. After dissecting the nerve bundles on the right side again with preservation of action potential but not as strong as initial dissection we then went to the left side we used a grasper progressive placed traction on the prostate off the left lateral wall identified the pedicle use the EMG monitoring again identify the the nerve bundles running into the prostate in the left side these were identified all the way up actually quite close to the prostate in the left side we then went through the pedicle of the left side with clips and bipolar cautery again for the entire case we did not use any monopolar cautery except for the dissection of the bladder neck after that the entire case we used bipolar and no more monopolar. As we dissected the left side we identified the nerve bundles again and teases off the lower aspect of the prostate this came up very nicely again no gross violation of the prostate and no gross evidence of extra capsular disease on dissection on the left side again we dissected will be at the apex and at the end of the dissection the action potential on the EMG monitoring was very strong just like the beginning. We then cut through the dorsal vein complex circumferentially dissected around the urethra made sure to free up the nerve bundles off the left and right side of the urethra without injuring them and then we placed an extra stitch in the dorsal vein complex to control bleeding vessels we then transected through the urethra and the prostate apex junction and the prostate was then extracted and put into an Endo Catch bag for later extraction at this point he had a pretty large bladder neck so I reconstructed the bladder neck and closed it tennis racquet fashion starting posteriorly at the 6:[address] so I had probably just the size of the fingertip into the bladder opening this had a nice closure treated nice bladder neck. I then completed the suture suspension of the urethra from the urethra to the bladder neck suspending the urethra nicely this was done around the Ortega catheter and continuous fashion after suspending the urethra with stitches then the catheter was inflated we checked the bladder the bladder was intact. There was no leakage. The bladder was then placed to gravity drainage. At the end of the case we had good spurring of both the right and left nerve bundles the right side was not as strong as the beginning of the case but still was present the left arm was drawn during the entire beginning and at the end of the dissection we also spent check the sphincter prior and the sphincter was also coapted nicely with good action potential on the sphincter. Appeared to have no gross violation of the prostate extension was noted on dissection completed the anastomosis we then extracted the prostate through the supra umbilical site we closed the site with interrupted 0 Vicryls and we also closed our 1012 air seal port with a Vicryl stitch. Patient's anesthesia was reversed he was taken back to the PACU in good condition all the sutures and needles were accounted for we flushed the bladder and the bladder was clear and the urine was draining clear urine with a Ortega catheter. Type of Anesthesia:: General Specimen's removed: prostate and lymph nodes - Admit VTE Documentation VTE Present on Admission: No VTE Mechan Device Prophylaxis: SCD's
[2018-08-05] MEDS: Ketorolac 15 MG/ML Vial IV ×2 (12:21→17:21)
[2018-08-05] MEDS: Lactated Ringers 1,000 ML 125 ML IV ×2 (12:23→17:19)
--- NOTE | 2018-08-05 13:36 | CPS ---
started by nursing
[2018-08-05 14:41] LABS: Hematocrit 43.7 % (40-54); Hemoglobin 14.4 g/dl (13.0-16.5); Mean Corpuscular Hgb 31.6 pg (27.0-32.0); Mean Corpuscular Volume 95.8 fL (80-94); Mean Platelet Vol. 8.8 fl (6.2-12.0); Platelet Count 158 K/mm3 (150-450); RBC Distribution Width CV 13.3 % (11.6-14.6); RBC Distribution Width SD 46.1 fl (35.1-43.9); Red Blood Count 4.56 M/mm3 (4.6-6.2); Scan Indicated on CBC? Y/N NO; White Blood Count 13.2 K/mm3 (4.4-11.0)
[2018-08-05 14:53] LABS: Anion Gap 7 (5-15); BUN 15 mg/dL (7-18); Calcium,Total 8.4 mg/dL (8.5-10.1); Chloride 107 mmol/L (98-107); Creatinine, Serum 1.15 mg/dL (0.70-1.30); EST Glomerular Filtration Rate 68 mL/min (>60); Est Glom Filt Rate - Afr Amer 83 mL/min (>60); Estimated Creatinine Clearance 68.77 ml/min; Glucose 115 mg/dL (74-106); Potassium 4.6 mmol/L (3.5-5.1); Sodium Level 140 mmol/L (136-145)
[2018-08-05] MEDS: Ciprofloxacin 500 MG Tablet PO ×2 (15:42→21:31)
[2018-08-05] MEDS: Atorvastatin Calcium 10 MG Tablet PO (21:31)
[2018-08-05] MEDS: Acetaminophen 325 MG Tablet PO (21:31)
[2018-08-05] MEDS: Docusate Sodium 100 MG Capsule 200 MG PO (21:31)
[2018-08-06] MEDS: Ketorolac 15 MG/ML Vial IV ×3 (00:08→11:55)
[2018-08-06] MEDS: 0.9% NaCl Peripheral Flush Adult/Peds IV ×2 (00:08→06:14)
[2018-08-06 03:37] VITALS: BP 130/77; PULSE 77; RESP 16; TEMP 37.2; O2SAT 97
[2018-08-06] MEDS: Lactated Ringers 1,000 ML 125 ML IV (03:47)
[2018-08-06 06:23] LABS: Hematocrit 39.5 % (40-54); Mean Corp Hgb Conc 32.9 g/gl (32-36); Mean Corpuscular Hgb 31.9 pg (27.0-32.0); Mean Corpuscular Volume 97.1 fL (80-94); Mean Platelet Vol. 9.2 fl (6.2-12.0); Platelet Count 147 K/mm3 (150-450); RBC Distribution Width CV 13.2 % (11.6-14.6); RBC Distribution Width SD 45.6 fl (35.1-43.9); Red Blood Count 4.07 M/mm3 (4.6-6.2); Scan Indicated on CBC? Y/N NO; White Blood Count 8.1 K/mm3 (4.4-11.0)
[2018-08-06 06:47] LABS: BUN 14 mg/dL (7-18); Creatinine, Serum 1.04 mg/dL (0.70-1.30); EST Glomerular Filtration Rate 77 mL/min (>60); Estimated Creatinine Clearance 76.04 ml/min; Glucose 91 mg/dL (74-106)
[2018-08-06 06:48] LABS: Anion Gap 8 (5-15); BUN/Creat Ratio 13.5 RATIO (10-20); Calcium,Total 8.1 mg/dL (8.5-10.1); Chloride 106 mmol/L (98-107); Est Glom Filt Rate - Afr Amer 93 mL/min (>60); Potassium 4.1 mmol/L (3.5-5.1); Sodium Level 138 mmol/L (136-145)
[2018-08-06 07:23] VITALS: O2SAT 97
--- NOTE | 2018-08-06 07:31 | PCM.PN.BLA ---
Progress Note doing well home today with cary ambulate. adv diet as ayla.
[2018-08-06 09:37] VITALS: BP 134/78; PULSE 82; RESP 16; TEMP 37.1; O2SAT 98
[2018-08-06] MEDS: Multivitamins,Therapeutic Tablet 1 TABLET PO (09:38)
[2018-08-06] MEDS: Docusate Sodium 100 MG Capsule 200 MG PO (09:39)
[2018-08-06] MEDS: Ciprofloxacin 500 MG Tablet PO (09:39)
[2018-08-06] MEDS: Acetaminophen 325 MG Tablet PO (10:36)
[2018-08-06] MEDS: Lisinopril 10 MG Tablet PO (10:36)
[2018-08-06 12:00] VITALS: BP 134/78; PULSE 82; RESP 16; TEMP 37.1; O2SAT 98
--- NOTE | 2018-08-06 12:38 | NURSING ---
0945 teaching went over in depth with pt and pt's on catheter care and switching over to leg bag. pt wanting to leave cary bigger bag on d/t increased output.
== END 2018-08-06 12:59 | disposition home or self-care (01) | DRG 708 ==
LOC: ACINP 08-07 09:56 → MS2 08-07 09:56
PROVIDERS: Admitting Provider Urology; Family Provider Family Medicine; PCP Family Medicine; Referring Provider Urology; Visit Provider Urology
PROC: 0VT04ZZ Resection of Prostate, Percutaneous Endoscopic Approach (ICD-10-PCS; CPT 55866; principal; 2018-08-05 07:10)
DX: C61 Malignant neoplasm of prostate (principal); I10 Essential (primary) hypertension; N40.0 Benign prostatic hyperplasia without lower urinary tract symptoms
CPT/HCPCS: 36415; 80048; 85027; 86850; 86900; 86920; 86922; 88304; 88305; 88307; 88309; 93005; J7120; A4216; J2405

== ENCOUNTER → 2018-11-05 16:04 | Outpatient (CLI) | payer OTHER, SELFPAY ==
[2018-08-05 13:32] VITALS: BMI 32.0
[2018-11-05 17:48] LABS: PSA,Total- Diagnostic 4.63 ng/mL (0.0-4.0)
== END ==
PROVIDERS: Family Provider Family Medicine; PCP Family Medicine; Referring Provider Urology; Visit Provider Urology
DX: C61 Malignant neoplasm of prostate (principal)
CPT/HCPCS: 36415; 84153

== ENCOUNTER → 2018-11-10 | Outpatient (CLI) | payer OTHER, SELFPAY ==
[2018-08-05 13:32] VITALS: BMI 32.0
== END | disposition home or self-care (01) ==
LOC: LAB 10:46
PROVIDERS: Family Provider Family Medicine; PCP Family Medicine; Referring Provider Urology; Visit Provider Urology
DX: R97.20 Elevated prostate specific antigen [PSA] (principal)
CPT/HCPCS: 36415; 84153

== ENCOUNTER 2018-12-30 09:43 | Day surgery (SDC) | payer OTHER, SELFPAY ==
[2018-08-05 13:32] VITALS: BMI 32.0
[2018-12-30] VITALS (7 sets, daily range): BP systolic 135–167; BP diastolic 83–112; PULSE 67–94; RESP 16–17; TEMP 36.5–36.8; O2SAT 96–100; BMI 32.0
--- NOTE | 2018-12-30 10:22 | DCINST_ITS ---
Discharge Diet: Light diet - advance as tolerated Discharge Activity: Return to Normal Activity Suture Line Care: Avoid Pulling/Pushing, Avoid Pinching/Bending Allergies/Adverse Reactions: Allergies No Known Allergies Allergy (Verified 12/30/18 10:00) Medications to take at Discharge Atorvastatin Calcium [Lipitor] 10 mg PO QHS 07/23/18 Gluc Bauman/Chondro Bauman A/Vit C/Mn [Glucosamine Chondroitin Tab] 2 each PO DAILY 07/23/18 Lisinopril [Zestril] 10 mg PO DAILY 07/23/18 Multivitamin [Daily Multiple Vitamin] 1 each PO DAILY 07/23/18 Niacin 2 tab PO DAILY 07/23/18 Calcium Carbonate/Vitamin D3 [Calcium 600 + Vit D Tablet] 1 each PO BID 12/23/18 Ciprofloxacin [Cipro] 500 mg PO BID #6 tab 12/30/18 Primary Care Physician: Ermias Castillo [Primary Care Provider] - Test Results: Test results from this visit will be discussed in further detail at your follow- up appointment, if applicable. Please Follow Up With: Krzysztof Fontanez MD When: keep appt for next Eligard shot
[2018-12-30] MEDS: Cefazolin 2 GM in 0.9% Normal Saline 100 ML IV (10:31)
--- NOTE | 2018-12-30 11:04 | PCM.OPRPT ---
Report of Operation Date of Procedure: 12/30/18 Pre-Operative Diagnosis: Prostate cancer status post radical prostatectomy with recurrent local disease in the pelvis planning for postoperative radiation therapy Post-Operative Diagnosis: Same Surgery/Procedure Performed:: Transrectal ultrasound of the rectum, guided placement perineal approach for gold markers, fiducial markers for radiation planning. Placement of a spacer gel between the bladder, and rectum and the prostatic fossa Description of Surgical Findings:: 63-year-old male who underwent a radical prostatectomy for high risk disease he has been healing up well and is gaining his bladder control really well and has been doing well however his PSA is elevated after surgery we did a PET scan that came back positive with lymph node in the presacral space positive this lymph node is not amenable to surgical resection therefore we will send in for radiation therapy we will place gold markers and also to place a spacer gel to protect the bladder from the rectum. 63-year-old male was taken back to the operating room at the smooth induction of anesthesia he was placed in dorsolithotomy position the perineum shaved prepped and draped in usual sterile fashion we used a iodoform band to hold up the testicle and penis out of the field, we then introduced an ultrasound probe into the rectum we performed ultrasonography of the bladder and the rectum identified the critical structures of the bladder and the rectum and the perirectal space and the did not be his fascia. I then placed one cigar wrapper on the right side under ultrasound guidance via the perineum and another cigar wrapper on the right side.. Via the peritoneum in the perirectal space and then we placed another cigar wrapper on the left side and the perineum the perirectal space was a 3 gold markers were placed then we set up the matrix gel the spacer O AR for injection this was done following the mimeograph operator's instructions once a spacer was was mixed and prepared for injection was then we used the bevel side needle down to come in in the midline creating a space between the rectum and the bladder inside the prostatic fossa first injected with saline to create the space once a space was created between the rectum the bladder then we injected the injection the matrix gel this was injected over 10 seconds after the injection we then palpated the rectum and he could feel the gel pushing the rectum off the bladder. Patient acetic was reversed and then he was taken back to PACU good condition and he will follow-up for his next hormone deprivation shot and again he can proceed with radiation therapy. Type of Anesthesia:: General Drains: none - Admit VTE Documentation VTE Present on Admission: No VTE Mechan Device Prophylaxis: SCD's
--- NOTE | 2018-12-30 11:08 | OP.PCM_ITS ---
Report of Operation Date of Procedure: 12/30/18 Pre-Operative Diagnosis: Prostate cancer status post radical prostatectomy with recurrent local disease in the pelvis planning for postoperative radiation therapy Post-Operative Diagnosis: Same Surgery/Procedure Performed:: Transrectal ultrasound of the rectum, guided placement perineal approach for gold markers, fiducial markers for radiation planning. Placement of a spacer gel between the bladder, and rectum and the p rostatic fossa Description of Surgical Findings:: 63-year-old male who underwent a radical prostatectomy for high risk disease he has been healing up well and is gaining his bladder control really well and has been doing well however his PSA is elevated after surgery we did a PET scan that came back positive with lymph node in the presacral space positive this lymph node is not amenable to surgical resection therefore we will send in for radiation therapy we will place gold markers and also to place a spacer gel to protect the bladder from the rectum. 63-year-old male was taken back to the operating room at the smooth induction of anesthesia he was placed in dorsolithotomy position the perineum shaved prepped and draped in usual sterile fashion we used a iodoform band to hold up the testicle and penis out of the field, we then introduced an ultrasound probe into the rectum we performed ultrasonography of the bladder and the rectum identified the critical structures of the bladder and the rectum and the perirectal space and the did not be his fascia. I then placed one upper marker on the right side under ultrasound guidance via the perineum and another upper marker on the right side.. Via the peritoneum in the perirectal space and then we placed another upper marker on the left side and the perineum the perirectal space was a 3 gold markers were placed then we set up the matrix gel the spacer O AR for injection this was done following the offal separator's instructions once a spacer was was mixed and prepared for injection was then we used the bevel side needle down to come in in the midline creating a space between the rectum and the bladder inside the prostatic fossa first injected with saline to create the space once a space was created between the rectum the bladder then we injected the injection the matrix gel this was injected over 10 seconds after the injection we then palpated the rectum and he could feel the gel pushing the rectum off the bladder. Patient acetic was reversed and then he was taken back to PACU good condition and he will follow-up for his next hormone deprivation shot and again he can proceed with radiation therapy. Type of Anesthesia:: General Drains: none - Admit VTE Documentation VTE Present on Admission: No VTE Mechan Device Prophylaxis: SCD's
== END 2018-12-30 13:47 | disposition home or self-care (01) ==
LOC: SDC 09:46 → AC 09:47
PROVIDERS: Family Provider Family Medicine; PCP Family Medicine; Referring Provider Urology; Visit Provider Urology
PROC: (CPT 55874; principal; 2018-12-30 10:10)
DX: C61 Malignant neoplasm of prostate (principal); Z79.899 Other long term (current) drug therapy; E78.5 Hyperlipidemia, unspecified; I10 Essential (primary) hypertension; C79.89 Secondary malignant neoplasm of other specified sites
CPT/HCPCS: 55876; J7120; J2405

== ENCOUNTER → 2019-01-13 | Outpatient (CLI) | payer OTHER, SELFPAY ==
[2018-12-30 10:03] VITALS: BMI 32.0
[2019-01-13 12:23] LABS: Absolute Lymphocyte Count 1.38 X10^3/ul (0.83-4.51); Absolute Neutrophil Count 5.1 X10^3/uL (2.0-7.7); Basophil# 0.01 X10^3/uL; Basophil% 0.1 % (0-1); Eosinophils% 4.1 % (0-5); Hematocrit 45.4 % (40-54); Hemoglobin 15.4 g/dl (13.0-16.5); Lymphocyte # 1.38 X10^3/ul (4.0); Lymphocyte % 18.8 % (19-41); Mean Corp Hgb Conc 33.9 g/gl (32-36); Mean Corpuscular Hgb 30.9 pg (27.0-32.0); Mean Platelet Vol. 9.6 fl (6.2-12.0); Monocyte# 0.57 X10^3/uL; Monocyte% 7.8 % (0-10); Neutrophil # 5.08 X10^3/uL (2.7-7.7); Neutrophil % 69.1 % (47-70); Platelet Count 185 K/mm3 (150-450); RBC Distribution Width CV 13.2 % (11.6-14.6); RBC Distribution Width SD 43.5 fl (35.1-43.9); Red Blood Count 4.99 M/mm3 (4.6-6.2); White Blood Count 7.4 K/mm3 (4.4-11.0)
[2019-01-13 12:24] LABS: POSITIVE COUNT NO; POSITIVE DIFFERENTIAL NO; POSITIVE MORPHOLOGY NO
[2019-01-13 12:46] LABS: Creatinine, Serum 1.08 mg/dL (0.70-1.30); EST Glomerular Filtration Rate 73 mL/min (>60); Est Glom Filt Rate - Afr Amer 89 mL/min (>60); PSA,Total- Diagnostic 1.68 ng/mL (0.0-4.0)
== END | disposition home or self-care (01) ==
LOC: LAB 11:27
PROVIDERS: Family Provider Family Medicine; PCP Family Medicine; Referring Provider Radiology Radiation Oncology; Visit Provider Radiology Radiation Oncology
DX: Z01.818 Encounter for other preprocedural examination (principal); C61 Malignant neoplasm of prostate
CPT/HCPCS: 36415; 82565; 84153; 85025

== ENCOUNTER → 2019-01-14 | Outpatient (CLI) | payer OTHER, SELFPAY ==
[2018-08-05 13:32] VITALS: BMI 32.0
[2018-12-30 10:03] VITALS: BMI 32.0
--- NOTE | 2019-01-14 12:54 | CT_ITS ---
STUDY: CT PELVIS WITH CONTRAST REASON FOR EXAM: Male, 63 years old. Radiation therapy planning for new diagnosis of prostate cancer. RADIATION DOSAGE (If Supplied By Facility): CTDIvol = ( 24.62 ) mGy, DLP = ( 1355.97 ) mGycm TECHNIQUE: Transaxial imaging of the pelvis was performed without oral contrast. 100 IV Isovue 300 was administered intravenously. Individualized dose optimization techniques were used for this CT. COMPARISON: Comparison is made with prior examination dated June 29, 2018. FINDINGS: Normal urinary bladder. Metallic radiation seeds are seen in the prostate bed. Since prior study, the prostate has decreased in size. It measures 2.3 cm x 3.6 cm. This causes indentation along the left side of the rectum. Normal visualized small intestine. Circumferential wall thickening of the rectum. Clinical correlation is recommended. There is no pelvic fluid. There is no pelvic lymphadenopathy or mass lesion. Normal visualized pelvic arteries. Small fat-containing umbilical hernia. There are degenerative changes of the visualized lumbar spine. CT/CT Pelvis W/CONT Therapy IMPRESSION: Decreased size of the prostate with several radiation seeds seen within the prostate bed. Circumferential wall thickening of the rectum. Clinical correlation is recommended. Electronically Signed: Rodger Rodriguez, at 9:27 EDT , Service support ,
--- NOTE | 2019-01-14 15:50 | NURSING ---
DURING CT AN 18FR MCDERMOTT CATHETER WAS USED TO EXPEL AIR FROM RECTUM FOR PROSTATE PLANNING CT.
== END | disposition home or self-care (01) ==
LOC: CT 12:52
PROVIDERS: Family Provider Family Medicine; PCP Family Medicine; Referring Provider Radiology Radiation Oncology; Visit Provider Radiology Radiation Oncology
DX: C61 Malignant neoplasm of prostate (principal)
CPT/HCPCS: 51600; 72193; Q9965; Q9967

== ENCOUNTER → 2019-02-08 | Outpatient (CLI) | payer OTHER, SELFPAY ==
[2018-12-30 10:03] VITALS: BMI 32.0
[2019-02-08 12:27] LABS: Absolute Lymphocyte Count 1.04 X10^3/ul (0.83-4.51); Absolute Neutrophil Count 3.3 X10^3/uL (2.0-7.7); Basophil# 0.01 X10^3/uL; Basophil% 0.2 % (0-1); Eosinophil# 0.43 X10^3/uL; Eosinophils% 8.1 % (0-5); Hematocrit 42.9 % (40-54); Hemoglobin 14.7 g/dl (13.0-16.5); Lymphocyte # 1.04 X10^3/ul (4.0); Lymphocyte % 19.7 % (19-41); Mean Corp Hgb Conc 34.3 g/gl (32-36); Mean Corpuscular Hgb 31.1 pg (27.0-32.0); Mean Corpuscular Volume 90.9 fL (80-94); Mean Platelet Vol. 9.5 fl (6.2-12.0); Monocyte# 0.53 X10^3/uL; Neutrophil # 3.27 X10^3/uL (2.7-7.7); Neutrophil % 61.8 % (47-70); Platelet Count 124 K/mm3 (150-450); RBC Distribution Width CV 13.4 % (11.6-14.6); RBC Distribution Width SD 43.6 fl (35.1-43.9); Red Blood Count 4.72 M/mm3 (4.6-6.2); White Blood Count 5.3 K/mm3 (4.4-11.0)
[2019-02-08 12:34] LABS: POSITIVE COUNT NO; POSITIVE DIFFERENTIAL NO; POSITIVE MORPHOLOGY NO
== END | disposition home or self-care (01) ==
LOC: LAB 12:06
PROVIDERS: Family Provider Family Medicine; PCP Family Medicine; Referring Provider Radiology Radiation Oncology; Visit Provider Radiology Radiation Oncology
DX: C61 Malignant neoplasm of prostate (principal)
CPT/HCPCS: 36415; 85025

== ENCOUNTER → 2019-03-01 | Outpatient (CLI) | payer OTHER, SELFPAY ==
[2018-12-30 10:03] VITALS: BMI 32.0
[2019-03-01 12:43] LABS: Absolute Lymphocyte Count 0.93 X10^3/uL (0.83-4.51); Absolute Neutrophil Count 4.2 X10^3/uL (2.0-7.7); Basophil# 0.03 X10^3/uL; Basophil% 0.4 % (0-1); Eosinophil# 0.66 X10^3/uL; Eosinophils% 9.6 % (0-5); Hematocrit 40.6 % (40-54); Hemoglobin 13.8 g/dL (13.0-16.5); Lymphocyte # 0.93 X10^3/ul (4.0); Lymphocyte % 13.6 % (19-41); Mean Corpuscular Hgb 31.7 pg (27.0-32.0); Mean Corpuscular Volume 93.3 fL (80-94); Mean Platelet Vol. 9.1 fl (6.2-12.0); Monocyte# 1.06 X10^3/uL; Monocyte% 15.5 % (0-10); NRBC Flagged by Analyzer 0 % (0-5); Neutrophil # 4.15 X10^3/uL (2.7-7.7); Neutrophil % 60.5 % (47-70); Platelet Count 182 K/mm3 (150-450); RBC Distribution Width CV 14.7 % (11.6-14.6); Red Blood Count 4.35 M/mm3 (4.6-6.2); White Blood Count 6.9 K/mm3 (4.4-11.0)
== END | disposition home or self-care (01) ==
LOC: LAB 12:14
PROVIDERS: Family Provider Family Medicine; PCP Family Medicine; Referring Provider Radiology Radiation Oncology; Visit Provider Radiology Radiation Oncology
DX: C61 Malignant neoplasm of prostate (principal)
CPT/HCPCS: 36415; 85025

== ENCOUNTER → 2019-06-14 16:50 | Outpatient (CLI) | payer OTHER, SELFPAY ==
[2018-12-30 10:03] VITALS: BMI 32.0
[2019-06-14 18:02] LABS: PSA,Total- Diagnostic 0.06 ng/mL (0.0-4.0)
== END ==
PROVIDERS: Family Provider Family Medicine; PCP Family Medicine; Referring Provider Urology; Visit Provider Urology
DX: C61 Malignant neoplasm of prostate (principal)
CPT/HCPCS: 36415; 84153

== ENCOUNTER → 2019-09-15 14:51 | Outpatient (CLI) | payer OTHER, SELFPAY ==
[2018-12-30 10:03] VITALS: BMI 32.0
[2019-09-15 15:44] LABS: PSA,Total- Diagnostic 0.02 ng/mL (0.0-4.0)
== END ==
PROVIDERS: PCP Family Medicine; Referring Provider Urology; Visit Provider Urology
DX: C61 Malignant neoplasm of prostate (principal)
CPT/HCPCS: 36415; 84153

== ENCOUNTER → 2019-12-21 10:56 | Outpatient (CLI) | payer OTHER, SELFPAY ==
[2018-12-30 10:03] VITALS: BMI 32.0
[2019-12-21 12:15] LABS: Anion Gap 9 (5-15); BUN 16 mg/dL (7-18); BUN/Creat Ratio 13.9 RATIO (10-20); Calcium,Total 9.8 mg/dL (8.5-10.1); Chloride 108 mmol/L (98-107); Creatinine, Serum 1.15 mg/dL (0.70-1.30); EST Glomerular Filtration Rate 68 mL/min (>60); Est Glom Filt Rate - Afr Amer 82 mL/min (>60); Glucose 117 mg/dL (74-106); PSA,Total- Diagnostic 0.01 ng/mL (0.0-4.0); Potassium 4.4 mmol/L (3.5-5.1); Sodium Level 141 mmol/L (136-145)
== END ==
PROVIDERS: PCP Family Medicine; Referring Provider Urology; Visit Provider Urology
DX: C79.89 Secondary malignant neoplasm of other specified sites (principal)
CPT/HCPCS: 36415; 80048; 84153

== ENCOUNTER → 2020-03-29 16:16 | Outpatient (CLI) | payer OTHER, SELFPAY ==
[2018-12-30 10:03] VITALS: BMI 32.0
[2020-03-29 17:31] LABS: PSA,Total- Diagnostic < 0.01 ng/mL (0.0-4.0)
== END ==
PROVIDERS: PCP Family Medicine; Referring Provider Urology; Visit Provider Urology
DX: C61 Malignant neoplasm of prostate (principal)
CPT/HCPCS: 36415; 84153

== ENCOUNTER → 2020-05-02 12:51 | Outpatient (CLI) | payer OTHER, SELFPAY ==
[2018-12-30 10:03] VITALS: BMI 32.0
--- NOTE | 2020-05-02 12:56 | BD_ITS ---
STUDY: DUAL ENERGY X-RAY ABSORPTIOMETRY / DXA REASON FOR EXAM: Male, 65 years old. PROSTATE CANCER- ON HORMONE THERAPY -- TAKES CALCIUM AND MULTIVITAMIN -- DOES LITTLE EXERCISE -- NO CORI TECHNIQUE: Bone Mineral Density (BMD) measurements of lumbar spine and bilateral hips were obtained. COMPARISON: None. FINDINGS: Lumbar Spine (L1-L4): g/cm2 (1.113) / T-score (-0.9) / Z-score (-0.5) Findings are suggestive of normal bone density with a low fracture risk. Left Femur Total: g/cm2 (1.191) / T-score (0.6) / Z-score (1.2) Left Femoral Neck: g/cm2 (1.487) / T-score (3.2) / Z-score (4.3) Right Femur Total: g/cm2 (1.074) / T-score (-0.2) / Z-score (0.3) Right Femoral Neck: g/cm2 (1.005) / T-score (-0.5) / Z-score (0.6) BD/Dexa Bone Density Study IMPRESSION: The patient is considered normal as outlined below according to World Marcus Organization (WHO) criteria with a low fracture risk. Reference Information: The T-score is the number of standard deviations above or below the standard which is normal for young adults at their peak bone mineral density. The World Health Organization (WHO) interprets the T-scores as follows: Above -1 Normal bone density Between -1 and -2.5 Osteopenia Equal to / or below -2.5 Osteoporosis As a practical clinical guideline, osteopenia may be graded as follows: Mild -1 through -1.5 Moderate -1.6 through -2.0 Severe -2.1 through -2.4 The Z-score is the number of standard deviations above or below age-matched controls. A Z-score of less than -1.5 would be considered abnormal. References: 1. NIH Osteoporosis and Related Bone Diseases http://www.osteo.org 2. International Society for Clinical Densitometry http://www.iscd.org 3. National Osteoporosis Foundation http://www.nof.org Electronically Signed: Rodger Rodriguez, at 15:50 EDT , Service support ,
== END ==
PROVIDERS: PCP Family Medicine; Referring Provider Urology; Visit Provider Urology
DX: C61 Malignant neoplasm of prostate (principal); C79.89 Secondary malignant neoplasm of other specified sites; M85.9 Disorder of bone density and structure, unspecified
CPT/HCPCS: 77080

== ENCOUNTER → 2020-07-06 13:50 | Outpatient (CLI) | payer OTHER, SELFPAY ==
[2018-12-30 10:03] VITALS: BMI 32.0
[2020-07-06 14:59] LABS: PSA,Total- Diagnostic < 0.01 ng/mL (0.0-4.0)
== END ==
PROVIDERS: PCP Family Medicine; Referring Provider Urology; Visit Provider Urology
DX: C61 Malignant neoplasm of prostate (principal)
CPT/HCPCS: 36415; 84153

== ENCOUNTER → 2020-10-12 12:46 | Outpatient (CLI) | payer OTHER, SELFPAY ==
[2018-12-30 10:03] VITALS: BMI 32.0
[2020-10-12 13:34] LABS: PSA,Total- Diagnostic < 0.01 ng/mL (0.0-4.0)
== END ==
PROVIDERS: PCP Family Medicine; Visit Provider Urology
DX: C61 Malignant neoplasm of prostate (principal)
CPT/HCPCS: 36415; 84153

== ENCOUNTER 2020-11-28 05:55 | Day surgery (SDC) | payer OTHER, SELFPAY ==
[2020-10-20 12:48] VITALS: BMI 33.6
--- NOTE | 2020-11-23 10:34 | EKG12_ITS ---
Test Reason : PREOP Blood Pressure : / mmHG Vent. Rate : 085 BPM Atrial Rate : 085 BPM P-R Int : 148 ms QRS Dur : 092 ms QT Int : 376 ms P-R-T Axes : 038 -21 061 degrees QTc Int : 447 ms Normal sinus rhythm Normal ECG Confirmed by TIRSO DYER, CLAIRE ([id number]), newspaper managing editor REGULO CANTU ([id number]) on 11/24/2020 8:19:41 AM Referred By: Matti Lynne Confirmed By:YARED CHAHAL MD
[2020-11-23 11:32] LABS: Anion Gap 6 (5-15); BUN 18 mg/dL (7-18); BUN/Creat Ratio 15.5 RATIO (10-20); Calcium,Total 9.2 mg/dL (8.5-10.1); Chloride 108 mmol/L (98-107); Creatinine, Serum 1.16 mg/dL (0.70-1.30); EST Glomerular Filtration Rate 67 mL/min (>60); Est Glom Filt Rate - Afr Amer 81 mL/min (>60); Glucose 98 mg/dL (74-106); Potassium 3.8 mmol/L (3.5-5.1); Sodium Level 140 mmol/L (136-145)
--- NOTE | 2020-11-28 07:00 | HP_ITS ---
Intake Vital Signs 10/20/20 Height 5 ft 10 in 10/20/20 Weight: 234 lb 8 oz 10/20/20 BMI 33.6 10/20/20 BP 129/80 H 10/20/20 Blood Pressure Location Rt brachial 10/20/20 Position Sitting 10/20/20 Respiration 18 10/20/20 Pulse 84 10/20/20 Pulse Source NIBP 10/20/20 Temp 97.4 F L 10/20/20 Temp Source Temporal 10/20/20 Pulse Oximetry (%) 97 10/20/20 Oxygen Delivery Method room air Intake Visit Reasons: Incisional Hernia Chief Complaint: incisoinal hernia School Social Worker Required: No Is patient in pain?: No Allergies No Known Allergies Allergy (Verified 10/20/20 12:48) Medications Lisinopril [Zestril] 10 mg PO DAILY 07/23/18 [History Confirmed 10/20/20] Multivitamin [Daily Multiple Vitamin] 1 each PO DAILY 07/23/18 [History Confirmed 10/20/20] Calcium Carbonate/Vitamin D3 [Calcium 600 + Vit D Tablet] 1 each PO BID 12/23/18 [History Confirmed 10/20/20] atorvastatin 20 mg tablet 20 mg PO DAILY tablet 10/20/20 [History Confirmed 10/20/20] glucosamine sulfate 1,000 mg capsule 1,000 mg PO DAILY 10/20/20 [History Confirmed 10/20/20] multivitamin 1 tablet PO DAILY 10/20/20 [History Confirmed 10/20/20] niacin 100 mg tablet 100 mg PO DAILY PRN 10/20/20 [History Confirmed 10/20/20] PFSH Medical History (Updated 10/20/20 @ 13:02 by Oneyda Mills) Back pain (Acute) History of prostate cancer (Acute) Hyperlipidemia (Acute) HTN (hypertension) (Chronic) Surgical History (Updated 10/20/20 @ 12:50 by Oneyda Mills) History of colonoscopy (Acute ~2017) History of laparoscopy (Acute) History of robot-assisted laparoscopic radical prostatectomy (Acute ~2018) Family History (Updated 10/20/20 @ 12:47 by Oneyda Mills) Sister Colon cancer Mother Hypertension Brother Hypertension Social History (Updated 10/20/20 @ 15:[address] Matti Lynne MD) Smoking Status: Never smoker HPI HPI HPI: RADHA DE LA ROSA, is a 65 M who presents to the office today for HPI HPI Surgical H&P: Yes HPI: RADHA DE LA ROSA, is a 65 M who presents to the office today for bulging at his port site where he had his robotic prostate surgery. Patient reports he has had bulging which is growing. He would like it repaired. He reports no nausea or vomiting. The patient does not have any radiation of his pain. There is nothing that makes it better or worse. ROS General General: Yes weight change; no appetite, fatigue, colon cancer, breast cancer or weakness HEENT HEENT: No difficulty swallowing, eye injury, eye surgery, swollen glands or hoarseness Endo Endocrine: No thyroid disease, diabetes mellitus, thyroid cancer, Hair loss, heat intolerance or cold intolerance Cardio Cardiovascular: Yes high blood pressure; no murmur, pacemaker, heart disease, atrial fibrillation, heart attack, heart stent, palpitations, shortness of breat with exertion or chest pain Psych Psychiatric: No depression, anxiety or hearing voices Resp Respiratory: No shortness of breath, No sleep apnea, No cough, No COPD, No asthma, No emphysema, No wheezing Gastro Gastrointestinal: No abdominal pain, No nausea or vomiting, No diarrhea, No constipation, No blood in stool, No acid reflux, No hemorrhoids, No ulcers, No gallbladder problem, No black,tarry stools Kiet Hematologic: No blood thinners, No blood disorders, No bleeding, No anemia, No blood clots Neuro Neurologic: No weakness Exam Const General: cooperative Orientation: alert, oriented x3 Resp Effort & Inspection: normal respiratory effort Auscultation: clear to auscultation bilaterally Cardio Rate: regular rate Rhythm: regular rhythm Heart Sounds: no murmurs GI Inspection: non-distended Palpation: soft, hernia ventral, nontender Assessment & Plan Problems 1. Ventral incisional hernia K43.2 Plan The patient has an incisional ventral hernia at his umbilical port site from his prostatectomy. I discussed hernia repair with him. I discussed the various approaches. I recommended a hybrid laparoscopic open approach. I discussed reducing the hernia and removing the hernia sac and then placing an intraperitoneal mesh with tacks laparoscopically. I discussed the risks of the procedure such as bleeding, infection, injury to underlying bowel. The patient understands all the risks and is when to proceed. Mesh placement was discussed with the patient in detail as well. Patient will be scheduled in November by his request. Matti Lynne MD Pager: [facility] [address] [place] [address], [address] [place] [address] Office: Coding Level of Care Code Off vis,new,level 3 Diagnoses Ventral incisional hernia K43.2
[2020-11-28] MEDS: Cefazolin 2 GM in 0.9% Normal Saline 100 ML IV (07:24)
--- NOTE | 2020-11-28 07:41 | HERN_PTH ---
PATIENT: RADHA DE LA ROSA LOC: [facility] [place] U#:[id number] AGE/SX: 65/M ROOM: RE11/28/[address]: Dr. Matti Lynne MD : [id number] BED: DIS: 11/28/2020 SPEC #: [id number] RECD: 11/28/20 10:02 STATUS: JOEY RE #: [id number] BOAZ: 11/28/20 07:[address]: Matti Lynne DEPT: SURGICAL PATHOLOGY RECD BY: Naida Alford ENTERED: 11/28/20 10:41 SP TYPE: Hernia OTHR DR: Dr. Ermias Castillo MD Tissues: HERNIA Procedures: Surgery Specimen Level II HEADER OPERATION: Laparoscopic to open ventral incisional hernia repair with mesh PRE-OP DIAGNOSIS: Incisional hernia TISSUE SUBMITTED: Hernia sac MICROSCOPIC DIAGNOSIS Hernia sac, herniorrhaphy: Hernia sac with mild fibrosis and mild chronic inflammation. AM:radha 11/29/2020 MICROSCOPIC DESCRIPTION Slides are reviewed. GROSS DESCRIPTION Received in fixative is one container labeled with the patient's name and designated hernia sac. The specimen consists of two pieces of boo soft tissue that in aggregate measure 3.5 x 3 x 0.8 cm. No mass lesion is identified. Film Touch Up Inspector sections are submitted in one cassette. / SJ:radha 11/28/20 TC:5 CPT: [id number]
[2020-11-28] MEDS: oxyCODONE 5 MG Tablet PO (09:55)
[2020-11-28] MEDS: Acetaminophen 325 MG Tablet PO (09:57)
[2020-11-28 11:20] VITALS: BP 127/82; PULSE 76; RESP 16; TEMP 36.4; O2SAT 100
[2020-11-28 12:23] VITALS: BP 120/72; PULSE 77; RESP 16; TEMP 36.6; O2SAT 100
--- NOTE | 2020-11-28 13:25 | OP.PCM_ITS ---
Problems Associated Problem List Diagnoses (1) Incisional hernia: Report of Operation Date of Procedure: 11/28/20 Pre-Operative Diagnosis: Incisional hernia Post-Operative Diagnosis: Same Surgery/Procedure Performed:: Hybrid open and laparoscopic incisional ventral hernia repair with mesh Type of Anesthesia: General Specimen's removed: Hernia sac Description of Procedure: Patient was brought back to the operating room and general anesthesia was induced. The abdomen was prepped and draped in the usual sterile fashion. An incision was made over the prior port site incision and deepened to the hernia sac. The hernia sac was circumferentially dissected using electrocautery and sharp dissection. The hernia sac was entered and then excised using letter cautery. The edges of the fascia were cleaned and elevated and the adhesions to the underlying tissue were lysed. Next interrupted 0 PDS sutures were placed in the fascia in a transverse fashion. Through this area before these were tied a port was placed and the abdomen was insufflated to 15 mmHg. The camera was inserted and under direct visualization 2 left-sided abdo tobin 5 mm ports were placed. The small circular ventralight ST mesh with echo positioning system was placed into the abdomen and the port was removed. The sutures were then tied closed at the hernia site. The pressure was dropped to 8 mmHg and the mesh was tacked to the anterior fascia in 4 quadrants. The balloon was then removed and was intact. The mesh was then tacked to the anterior abdom inal wall circumferentially in 2 rows. There was good placement of mesh and then the air was allowed to desufflate from the abdomen and the ports were removed. The subcutaneous tissue was irrigated and suctioned dry and then local anesthetic was injected into all the incisions. The incisions were closed with interrupted 4-0 Monocryl suture as well as Steri-Strips and bandages. Patient was then awoken and taken to PACU in stable condition tolerated the procedure well. Grafts/Implants Used: [address] Admit VTE Documentation VTE Present on Admission: No VTE Mechan Device Prophylaxis: SCD's
== END 2020-11-28 12:32 ==
LOC: SDC 07:39 → AC 07:39
PROVIDERS: Anesthesiology; PCP Family Medicine; Referring Provider Surgery; Visit Provider Surgery
PROC: 0WQF4ZZ Repair Abdominal Wall, Percutaneous Endoscopic Approach (ICD-10-PCS; CPT 49560; principal; 2020-11-28 07:10)
DX: K43.2 Incisional hernia without obstruction or gangrene (principal); I10 Essential (primary) hypertension; E78.5 Hyperlipidemia, unspecified; Z79.899 Other long term (current) drug therapy; Z85.46 Personal history of malignant neoplasm of prostate; Z90.79 Acquired absence of other genital organ(s)
CPT/HCPCS: 00832; 49560; 49568; 36415; 80048; 88302; 93005; J7120

== ENCOUNTER → 2021-01-04 12:32 | Outpatient (CLI) | payer OTHER, SELFPAY ==
[2020-10-20 12:48] VITALS: BMI 33.6
[2021-01-04 14:35] LABS: PSA,Total- Diagnostic < 0.01 ng/mL (0.0-4.0)
== END ==
PROVIDERS: PCP Family Medicine; Referring Provider Urology; Visit Provider Urology
DX: C61 Malignant neoplasm of prostate (principal)
CPT/HCPCS: 36415; 84153

== ENCOUNTER → 2021-04-19 12:23 | Outpatient (CLI) | payer OTHER, SELFPAY ==
[2021-04-19 15:11] LABS: PSA,Total- Diagnostic < 0.01 ng/mL (0.0-4.0)
== END ==
PROVIDERS: PCP Family Medicine; Referring Provider Urology; Visit Provider Urology
DX: C61 Malignant neoplasm of prostate (principal)
CPT/HCPCS: 36415; 84153

== ENCOUNTER → 2021-08-02 11:46 | Outpatient (CLI) | payer OTHER, SELFPAY ==
[2021-08-02 13:52] LABS: PSA,Total- Diagnostic < 0.01 ng/mL (0.0-4.0)
== END ==
PROVIDERS: PCP Family Medicine; Referring Provider Urology; Visit Provider Urology
DX: C61 Malignant neoplasm of prostate (principal)
CPT/HCPCS: 36415; 84153

== ENCOUNTER → 2022-02-20 | Outpatient (CLI) | payer MEDICARE, OTHER, SELFPAY ==
[2022-02-20 13:53] LABS: PSA,Total- Diagnostic 0.04 ng/mL (0.0-4.0)
== END | disposition home or self-care (01) ==
PROVIDERS: PCP Family Medicine; Visit Provider Urology
DX: C61 Malignant neoplasm of prostate (principal)
CPT/HCPCS: 36415; 84153

== ENCOUNTER → 2022-08-27 | Outpatient (CLI) | payer MEDICARE, SELFPAY ==
[2022-08-27 13:10] LABS: PSA,Total- Diagnostic 0.29 ng/mL (0.0-4.0)
== END | disposition home or self-care (01) ==
LOC: LAB 11:36
PROVIDERS: PCP Family Medicine; Referring Provider Urology; Visit Provider Urology
DX: C61 Malignant neoplasm of prostate (principal)
CPT/HCPCS: 36415; 84153

== ENCOUNTER → 2022-11-25 | Outpatient (CLI) | payer MEDICARE, SELFPAY ==
[2022-11-25 13:03] LABS: PSA,Total- Diagnostic 0.56 ng/mL (0.0-4.0)
== END | disposition home or self-care (01) ==
LOC: LAB 11:48
PROVIDERS: PCP Family Medicine; Referring Provider Urology; Visit Provider Urology
DX: C61 Malignant neoplasm of prostate (principal)
CPT/HCPCS: 36415; 84153

== ENCOUNTER → 2023-01-14 | Outpatient (CLI) | payer MEDICARE, SELFPAY ==
--- NOTE | 2023-01-14 09:30 | PET_ITS ---
EXAMINATION: 18 F Pylarify PET-CT HISTORY: A 67-year-old male with history of primary prostate carcinoma presenting for restaging examination. COMPARISON EXAMINATION: None available INDEX LESION SIZE PROMISE SCORE SUV INTERPRETATION Vertex skull, midline 1 4.88 Quantitative criteria for viable neoplasm are not fulfilled Right thoracic perihilum 1 4.1 Quantitative criteria for viable neoplasm are not fulfilled Right inguinal region 1 2.21 Quantitative criteria for viable neoplasm are not fulfilled TECHNIQUE: Following the intravenous administration of 9.6 mCi of 18 F Pylarify via the left hand, image acquisitions of the head, neck, chest, abdomen and pelvis to the level of the mid thigh at 73 minutes post-tracer distribution reveal: The examination was interpreted using the EANM (Jerrod et al., Journal of Nuclear Medicine Molecular Imaging 44:1622, 2017) and PROMISE (Nicole et al., Journal of Nuclear Medicine 59:469, 2018) interpretive criteria. HEIGHT: 70 inches. WEIGHT: 225 lbs. PSMA expression score PROMISE criteria: High (3): SUV ? parotid-salivary gland, intermediate (2): SUV ? liver, low (1): > blood pool, < liver, (0): < blood pool. SUV reference values: Parotid glands 31.73. Normal liver parenchyma 7.45. Blood pool 2.9. FINDINGS: Head/Neck: Symmetric radiopharmaceutical concentration is defined in the bilateral parotid and submandibular glands. There is physiologic uptake within the nasal cavity. There is no evidence of abnormal increased tracer concentration within the cranial vault. There is increased uptake noted in the midline vertex skull with a calculated maximal standard uptake value of 4.88. The PROMISE score is 1. CHEST: Mild increased tracer uptake is visualized in the right thoracic perihilum. The calculated maximal standard uptake value is 4.1. The PROMISE score is 1. Pertinent chest CT findings are as follows. There are no parenchymal densities-nodules defined in the right and left hemithorax with quantitatively significant increased FDG uptake. There is atherosclerotic calcification defined in the thoracic aorta without evidence of dilatation-aneurysm formation. Coronary arterial calcification is observed. Bilateral axillary soft tissue densities are ametabolic. Calcified thoracic perihilar soft tissue reveals no evidence of increased tracer uptake. Scattered mediastinal and bilateral axillary soft tissue densities are non-radiopharmaceutical avid. There are no parenchymal densities-nodules defined in the right and left hemithorax with quantitatively significant increased FDG uptake. Abdomen/Pelvis: Enhanced tracer uptake is subtly apparent in the right inguinal region with a generated calculated maximal standard uptake value of 2.21. The PROMISE score is 1. Physiologic radiopharmaceutical concentration is otherwise noted in the hepatic and splenic parenchyma, visualized intestinal tract, right and left kidneys, urinary bladder. Review of CT of the abdomen and pelvis reveals the following. Multiple calcified gallstones are identified. Calcified virgen formation is noted in the splenic parenchyma. There is atherosclerotic calcification defined in the abdominal aorta without evidence of dilatation-aneurysm formation. Pelvic arterial calcification is observed. Beam hardening artifact attributed to a left hip arthroplasty compromises interpretation of the lower pelvic CT acquisitions. Right-left inguinal soft tissue is non-tracer avid. Postsurgical changes are defined in the bilateral lower hemipelvis. Calcified phlebolith formation is encountered in the left hemipelvis. SKELETAL: Left hip arthroplasty is defined as previously described. Degenerative changes are noted in the cervical, thoracic and lumbar spine without evidence of increased radiopharmaceutical concentration. PET/PET/CT Tumor Base -Thigh Subs IMPRESSION: 1. NEGATIVE EXAMINATION. There is no definitive quantitative scintigraphic evidence of recurrent/viable neoplasm. 2. Facilitated uptake noted in the vertex skull in the midline does not fulfill quantitative criteria for malignant transformation. 3. Enhanced tracer uptake noted in the right thoracic perihilum and right inguinal regions do not fulfill quantitative criteria for neoplasia. (Eilauryn et al., Journal of Nuclear Medicine 59:469, 2018). Electronic Signature Brooks Seay DO Electronically Signed: Brooks Seay, at 14:38 EDT ,
== END | disposition home or self-care (01) ==
PROVIDERS: PCP Family Medicine; Referring Provider Registered Nurse; Visit Provider Registered Nurse
DX: C61 Malignant neoplasm of prostate (principal)
CPT/HCPCS: 78815; A9595

== ENCOUNTER → 2023-03-04 | Outpatient (CLI) | payer MEDICARE, SELFPAY ==
[2023-03-04 14:01] LABS: PSA,Total- Diagnostic < 0.01 ng/mL (0.0-4.0)
== END | disposition home or self-care (01) ==
LOC: LAB 12:50
PROVIDERS: PCP Family Medicine; Referring Provider Registered Nurse; Visit Provider Registered Nurse
DX: C61 Malignant neoplasm of prostate (principal)
CPT/HCPCS: 36415; 84153

== ENCOUNTER → 2023-06-02 | Outpatient (CLI) | payer MEDICARE, SELFPAY ==
[2023-06-02 15:29] LABS: PSA,Total- Diagnostic < 0.01 ng/mL (0.0-4.0)
== END | disposition home or self-care (01) ==
LOC: LAB 13:43
PROVIDERS: PCP Family Medicine; Referring Provider Urology; Visit Provider Urology
DX: C61 Malignant neoplasm of prostate (principal)
CPT/HCPCS: 36415; 84153

== ENCOUNTER → 2023-09-03 | Outpatient (CLI) | payer MEDICARE, SELFPAY ==
[2023-09-03 14:26] LABS: PSA,Total- Diagnostic < 0.01 ng/mL (0.0-4.0)
== END | disposition home or self-care (01) ==
LOC: LAB 13:35
PROVIDERS: PCP Family Medicine; Referring Provider Nurse Practitioner; Visit Provider Nurse Practitioner
DX: C61 Malignant neoplasm of prostate (principal)
CPT/HCPCS: 36415; 84153

== ENCOUNTER → 2023-12-15 | Outpatient (CLI) | payer MEDICARE, SELFPAY ==
[2023-12-15 13:07] LABS: PSA,Total- Diagnostic < 0.01 ng/mL (0.0-4.0)
== END | disposition home or self-care (01) ==
LOC: LAB 11:59
PROVIDERS: PCP Family Medicine; Referring Provider Urology; Visit Provider Urology
DX: C61 Malignant neoplasm of prostate (principal)
CPT/HCPCS: 36415; 84153

== ENCOUNTER → 2024-03-18 | Outpatient (CLI) | payer MEDICARE, SELFPAY ==
[2024-03-18 12:17] LABS: PSA,Total - Annual Screen < 0.01 ng/mL (0.00-4.00)
== END | disposition home or self-care (01) ==
PROVIDERS: PCP Family Medicine; Referring Provider Nurse Practitioner; Visit Provider Nurse Practitioner
DX: Z12.5 Encounter for screening for malignant neoplasm of prostate (principal); C61 Malignant neoplasm of prostate
CPT/HCPCS: 36415; 84153; G0103

== ENCOUNTER → 2024-06-15 | Outpatient (CLI) | payer MEDICARE, SELFPAY ==
[2024-06-15 11:33] LABS: PSA,Total- Diagnostic < 0.01 ng/mL (0.0-4.0)
== END | disposition home or self-care (01) ==
LOC: LAB 10:14
PROVIDERS: PCP Family Medicine; Referring Provider Nurse Practitioner; Visit Provider Nurse Practitioner
DX: C61 Malignant neoplasm of prostate (principal)
CPT/HCPCS: 36415; 84153

== ENCOUNTER → 2024-09-22 | Outpatient (CLI) | payer MEDICARE, SELFPAY ==
[2024-09-22 12:29] LABS: PSA,Total- Diagnostic < 0.01 ng/mL (0.0-4.0)
== END | disposition home or self-care (01) ==
LOC: LAB 11:31
PROVIDERS: PCP Family Medicine; Referring Provider Urology; Visit Provider Urology
DX: C61 Malignant neoplasm of prostate (principal)
CPT/HCPCS: 36415; 84153

== ENCOUNTER → 2024-12-21 | Outpatient (CLI) | payer MEDICARE, SELFPAY ==
[2024-12-21 13:18] LABS: PSA,Total- Diagnostic < 0.02 ng/mL (0.00-4.00)
== END | disposition home or self-care (01) ==
LOC: LAB 12:15
PROVIDERS: PCP Family Medicine; Referring Provider Nurse Practitioner; Visit Provider Nurse Practitioner
DX: C61 Malignant neoplasm of prostate (principal)
CPT/HCPCS: 36415; 84153

== ENCOUNTER → 2025-03-31 | Outpatient (CLI) | payer MEDICARE, SELFPAY ==
[2025-03-31 11:55] LABS: PSA,Total- Diagnostic < 0.02 ng/mL (0.00-4.00)
== END | disposition home or self-care (01) ==
LOC: LAB 09:51
PROVIDERS: PCP Family Medicine; Referring Provider Nurse Practitioner; Visit Provider Nurse Practitioner
DX: C61 Malignant neoplasm of prostate (principal)
CPT/HCPCS: 36415; 84153

== ENCOUNTER → 2025-06-21 | Outpatient (CLI) | payer MEDICARE, SELFPAY ==
[2025-06-21 11:17] LABS: PSA,Total- Diagnostic < 0.02 ng/mL (0.00-4.00)
== END | disposition home or self-care (01) ==
LOC: LAB 09:42
PROVIDERS: PCP Family Medicine; Referring Provider Urology; Visit Provider Urology
DX: C61 Malignant neoplasm of prostate (principal)
CPT/HCPCS: 36415; 84153